=== PATIENT | male | born 1955 | race Caucasian/White ===

== ENCOUNTER → 2019-10-21 | Outpatient (CLI) | payer BC ==
--- NOTE | 2019-10-22 07:50 | XR ---
EXAM TYPE: LUMBAR SPINE X RAY SERIES COMPARISON: NONE HISTORY: Pain TECHNIQUE: 3 views are submitted. FINDINGS: Alignment is anatomic. The pedicles are intact. The transverse processes are intact. Diffuse osteop enia. Hypertrophic and degenerative changes of the spine with severe facet arthropathy L4-5 and L5-S1 . No anterolisthesis. IMPRESSION: 1. Diffuse osteopenia with multilevel mild degenerative disc disease. Severe facet arthropathy L4-5 a nd L5-S1.
== END | disposition home or self-care (01) ==
LOC: RAD 16:58
PROVIDERS: ATTEND Family Medicine
DX: M51.36 Other intervertebral disc degeneration, lumbar region (principal); M85.88 Other specified disorders of bone density and structure, other site; M47.896 Other spondylosis, lumbar region
CPT/HCPCS: 72100

== ENCOUNTER → 2020-01-13 | Outpatient (CLI) | payer BC ==
[2020-01-13 17:04] LABS: Basophils # (A) 0.1 k/uL (0-0.2); Basophils % (A) 1 %; Eosinophils # (A) 0.2 k/uL (0-0.7); Eosinophils % (A) 2 %; HCT 48.7 % (39.0-53.0); HGB 15.8 gm/dL (13.0-17.5); Lymphocytes # (A) 2.2 k/uL (1.0-4.8); Lymphocytes % (A) 21 %; MCH 29.4 pg (25.0-35.0); MCHC 32.5 g/dL (31.0-37.0); MCV 90.3 fL (80.0-100.0); Monocytes # (A) 0.9 k/uL (0-1.0); Monocytes % (A) 8 %; Neutrophils # (A) 7.1 k/uL (1.3-7.7); Neutrophils % (A) 67 %; Platelet Count 340 k/uL (150-450); RBC 5.39 m/uL (4.30-5.90); WBC 10.7 k/uL (3.8-10.6)
[2020-01-14 00:09] LABS: Erythrocyte Sedimentation Rate 8 mm/Hr (0-20)
[2020-01-14 03:06] LABS: Gliadin AB IgA, Deaminated NEGATIVE (NEGATIVE); Gliadin AB IgA, Unit 0.4 U/mL; Gliadin AB IgG, Deaminated NEGATIVE (NEGATIVE)
== END | disposition home or self-care (01) ==
LOC: LABWHC1 15:57
PROVIDERS: ATTEND Internal Medicine Gastroenterology
DX: K52.9 Noninfective gastroenteritis and colitis, unspecified (principal)
CPT/HCPCS: 36415; 83516; 85025; 85652; 86140

== ENCOUNTER → 2021-11-29 | Outpatient (CLI) | payer MEDICARE, BC ==
[2021-11-29 14:33] LABS: Basophils # (A) 0.06 X 10*3/uL (0.00-0.10); Basophils % (A) 0.9 %; Eosinophils # (A) 0.14 X 10*3/uL (0.04-0.35); HCT 44.9 % (39.6-50.0); Immature Grans, Automated 0.6 %; Lymphocytes # (A) 1.32 X 10*3/uL (0.90-5.00); MCHC 33.4 g/dL (32.0-37.0); MCV 86.8 fL (80.0-97.0); Monocytes % (A) 11.5 %; NRBC Per 100 WBC 0 /100 WBCS (0.0-0.0); Platelet Count 263 X 10*3/uL (140-440); RBC 5.17 X 10*6/uL (4.40-5.60); RDW 12.9 % (11.5-14.5); WBC 6.96 X 10*3/uL (4.50-10.00)
[2021-11-29 14:35] LABS: African American GFR (CKD) 87.9 (60.0-200.0); Albumin 4.1 g/dL (3.8-4.9); Albumin/Globulin Ratio 1.56 (1.60-3.17); Anion Gap 9.4 mmol/L (10.00-18.00); BUN/Creat Ratio 11.17 Ratio (12.00-20.00); Blood Urea Nitrogen 11.5 mg/dL (9.0-27.0); Carbon Dioxide 23.7 mmol/L (20.0-27.5); Globulin 2.6 g/dL (1.6-3.3); Non-African American GFR(CKD) 75.9 (60.0-200.0); Potassium 4.2 mmol/L (3.5-5.5); Total Bilirubin 0.6 mg/dL (0.30-1.20); Total Protein 6.7 g/dL (6.2-8.2)
== END | disposition home or self-care (01) ==
LOC: LABWHC1 10:19
PROVIDERS: ATTEND Family Medicine
DX: Z01.812 Encounter for preprocedural laboratory examination (principal); E11.9 Type 2 diabetes mellitus without complications; I10 Essential (primary) hypertension; E78.5 Hyperlipidemia, unspecified
CPT/HCPCS: 36415; 80053; 85025

== ENCOUNTER 2021-12-05 10:31 | Day surgery (SDC) | payer MEDICARE, BC ==
[2021-12-03 09:18] VITALS: BMI 43.0
--- NOTE | 2021-12-04 23:53 | HP ---
HISTORY AND PHYSICAL DATE OF SURGERY: 12/05/2021 HISTORY: Adrián Acosta is a 66-year-old patient who is having progressive right knee pain. We discussed options for treatment. He elected to proceed with right knee arthroscopy. Consent was obtained. Medical clearance was provided by Dr. Mitchell. PAST MEDICAL HISTORY: Hypertension, insulin-dependent diabetes, and hyperlipidemia. PAST SURGICAL HISTORY: Foot surgery, knee arthroscopy. MEDICATIONS: Atenolol, Lantus insulin, Prilosec, and simvastatin. ALLERGIES: None. SOCIAL HISTORY: Denies current tobacco use. PHYSICAL EVALUATION OF THE RIGHT KNEE: Range of motion is 0-130. He has mild effusion. Tenderness on the medial and lateral joint lines. Positive medial Elisa's. Positive lateral Elisa's. Ligaments stable. Hip rotation without pain. Distal neurovascular exam is intact. RADIOGRAPHS: Revealed osteoarthritic changes. MRI right knee revealed lateral meniscal tear and osteoarthritic changes. IMPRESSION: 1. Internal derangement of right knee lateral meniscal tear. 2. Right knee osteoarthritis. 3. Insulin-dependent diabetes. 4. Hypertension. 5. Hyperlipidemia. PLAN: Right knee arthroscopy with partial lateral meniscectomy and debridement. MMODL / IJN: [id number] /
[~2021-12-05 10:31] MED LIST: DEXAMETHASONE SOD PHOSPHATE 4 MG/ML 1 ML VIAL IV ONE; LACTATED RINGERS 1,000 ML IV SCH; LIDOCAINE 1% (10MG/ML) FOR IV START INTRADERMA PRN; MIDAZOLAM 2 MG/2 ML VIAL IV PRN; ONDANSETRON 4 MG/2 ML VIAL IVP ONE; ceFAZolin 3 GM in SODIUM CHLORIDE 0.9% 100 ML IVPB PRN
[2021-12-05 11:27] LABS: Glucose,Whole Blood 128 mg/dL (70-110)
[2021-12-05] MEDS ORDERED: SUCCINYLCHOLINE CHLORIDE 200 MG/10 ML VIAL IV ONE (11:44)
[2021-12-05] MEDS ORDERED: MIDAZOLAM 2 MG/2 ML VIAL ONE (11:44)
[2021-12-05] MEDS ORDERED: fentaNYL (PF) 50 MCG/ML 2 ML AMP ONE (11:44)
[2021-12-05] MEDS ORDERED: PROPOFOL 10 MG/ML 20 ML VIAL IV ONE (11:44)
[2021-12-05] MEDS ORDERED: LIDOCAINE 2% INJ 20 MG/ML (2 ML VIAL) ONE (11:44)
[2021-12-05] MEDS ORDERED: BUPIVACAINE (PF) 0.25% 30 ML VIAL INTRAARTIC ONE (12:11)
[2021-12-05 12:45] VITALS: RESP 16; TEMP 97
--- NOTE | 2021-12-05 12:47 | P.OP ---
Date of Procedure: 12/05/21 Preoperative Diagnosis: Internal derangement right knee Postoperative Diagnosis: 1. Tear medial and lateral meniscus right knee 2. Grade 2/3 chondromalacia medial femoral condyle right knee 3. Reactive synovitis medial, lateral and suprapatellar compartments right knee Procedure(s) Performed: 1. Arthroscopic partial medial and lateral meniscectomy right knee 2. Arthroscopic chondroplasty medial femoral condyle right knee 3. Arthroscopic partial synovectomy medial, lateral and suprapatellar compartments right knee Anesthesia: TICOA, local Surgeon: Moisés Bryant Estimated Blood Loss (ml): 7 Pathology: none sent Condition: stable Disposition: PACU Indications for Procedure: 66-year-old patient seen with progressive right knee pain. After treatment options were discussed, he elected to proceed with arthroscopy. Operative Findings: See description of procedure Description of Procedure: Patient was taken to the operative suite. Patient underwent a general anesthetic by the department of anesthesia. Patient was given preoperative antibiotics. The right lower extremity was placed in a well-padded arthroscopic leg whitehead. The right leg was prepped and draped in the normal sterile orthopedic fashion. A lateral parapatellar and suprapatellar incision was made. Trochars were inserted. Arthroscopy was initiated. Suprapatellar pouch revealed diffuse thick reactive synovitis. The patellofemoral joint appeared to articulate congruently. There was grade 1/2 chondromalacia of the patella with no osteochondral tears present. The scope was guided into the medial gutter. No loose bodies or plica were identified. The scope was then guided into the medial compartment. A medial parapatellar incision was made. Trocar inserted followed by probe. There was a radial tear involving the posterior horn and midbody of the medial meniscus. There was evidence of previous meniscectomy as well. There were grade 2/3 chondromalacia changes of the femoral condyle and tibial plateau with some osteochondral flap tears involving the femoral condyle. There was some thick reactive synovitis anteriorly. I performed a partial medial meniscectomy getting down to stable meniscal tissue. I performed a cho ndroplasty of the medial femoral condyle getting down to stable osteochondral tissue. I performed a partial synovectomy decompressing the reactive synovitis. The residual meniscus was stable. The residual osteochondral surface was stable. There was good decompression of the synovitis. Scope and probe were then guided into the intercondylar notch. Cruciates were identified, probed and found to be stable. The scope and probe were then guided into lateral compartment. There was a radial tear anterior horn lateral meniscus. There were grade 1 chondromalacia changes of the lateral compartment with no osteochondral tears present. Her was some thick reactive synovitis anteriorly. I performed a partial lateral meniscectomy. I performed a partial synovectomy. The residual meniscus was stable. There was good decompression of synovitis. The scope was in guided back into the suprapatellar compartment. I introduced a motorized shaver into the suprapatellar compartment. I debrided some piecemeal fragments of meniscus I encountered. I performed a partial synovectomy. The shaver was now removed. There was good decompression of synovitis. I took one more look on the entire knee, no residual debris. Instruments were now removed from the joint. The joint was infiltrated with .25% Marcaine. Steri-Strips were applied to the portal sites. Sterile dressings were applied. The patient was placed into a WOOD hose. No tourniquet was utilized. The patient was awakened, transferred to a bed and taken to recovery stable satisfactory condition.
[2021-12-05] MEDS: HYDROmorphone 0.5 MG/0.5 ML SYRINGE IVP PRN ×2 (12:55→13:05)
[2021-12-05] MEDS ORDERED: ONDANSETRON ODT 4 MG TAB PO ONE ×2 (14:41)
[2021-12-05 14:52] LABS: Glucose,Whole Blood 128 mg/dL (70-110)
[2021-12-05 14:54] VITALS: BP 150/76; PULSE 72
== END 2021-12-05 15:18 | disposition home or self-care (01) ==
LOC: OR 10:31
PROVIDERS: ATTEND Orthopaedic Surgery
DX: S83.281A Other tear of lateral meniscus, current injury, right knee, initial encounter (principal); S83.241A Other tear of medial meniscus, current injury, right knee, initial encounter; M17.11 Unilateral primary osteoarthritis, right knee; M65.861 Other synovitis and tenosynovitis, right lower leg; M94.261 Chondromalacia, right knee; X58.XXXA Exposure to other specified factors, initial encounter; I10 Essential (primary) hypertension; E11.9 Type 2 diabetes mellitus without complications; E78.5 Hyperlipidemia, unspecified; G47.33 Obstructive sleep apnea (adult) (pediatric); Z87.891 Personal history of nicotine dependence; Z79.899 Other long term (current) drug therapy; Z79.4 Long term (current) use of insulin; Z79.82 Long term (current) use of aspirin; Z98.890 Other specified postprocedural states
CPT/HCPCS: 29880; J2250; J0330; J1100; J0690; J2405; J3010; J2704; J1170; J2001

== ENCOUNTER → 2022-02-14 | Outpatient (CLI) | payer MEDICARE, BC ==
--- NOTE | 2022-02-14 17:07 | P.PN ---
Subjective DATE: 02/14/2022 FOLLOW UP VISIT. Patient with obstructive sleep apnea hypopnea syndrome return to sleep center for follow-up visit. This is first visit after patient received new CPAP unit. Information from previous visit have been reviewed. Patient is using PAP equipment every night for the whole night, getting PAP supplies in time. The patient does not have significant problems with the mask, PAP unit and humidification. [place] sleepiness scale is 2, which is perfect. I checked information from PAP unit. PAP unit pressure 6-10, average 9.5 cm H2O. Usage is 70 % for more then 4 hours, average 8 hours per night. Leak is 4.1 l/m, which is in acceptable range. Apnea Hypopnea Index is 1.5, which is normal. MEDICATIONS:1. Atenolol 25 mg once a day 2. Simvastatin 40 mg once a day 3. Insulin 4. Famotidine 40 mg once a day During physical exam: GENERAL: A pleasant patient without any distress. VITAL SIGNS: BP 142/82, HR 83, RR 16 , weight 326.4, temperature 97, oxygen saturation at room air 96 % . HEENT: PERRLA, EOMI.low position of soft palate, Mallapati 4 . NECK: Supple. No JVD. LUNGS: Clear to percussion and to auscultation. Good air exchange. No wheezing or rhonchi. HEART: S1, S2 regular. ABDOMEN: Soft and nontender. Obese EXTREMITIES: No clubbing or cyanosis. CHOCOLATIER: Awake, alert, and oriented x3. No focal deficit. Impressions: 1. Obstructive sleep apnea-hypopnea syndrome. Patient demonstrated good compliance with treatment, benefiting from treatment. 2. Obesity. 3. Hypertension. 4. Diabetes mellitus. 5. Acid reflux. 6. Hyperlipidemia. 7. History of asbestosis. 8. Status post arthroscopic knee surgery. 9. Status post hemorrhoidectomy. 10. Status post bilateral cataract surgery. 11.[]. 12.[]. Plan: 1. Continue using PAP equipment every night for the whole night. 2. To change air filter at least 1-2 times per month. 3. PAP unit should stay lower then position of the head. 4. Advised patient to remove all remaining water from humidifier canister daily and make it dry after each usage. Refill canister with fresh distilled water before each usage. 5. Sleep hygiene with regular time in bed for at least 8 hours. 6. Precautions related to driving. No driving if feel any sleepiness. 7. I will maintain prescription for PAP supplies including mask, tube, filters. 8. Follow up visit in 6 months or earlier if patient has any problems. 9. Watching and losing weight. Thank you very much for allowing me to participate in the management of your patient. Huber Rendon MD, PhD, FAASM. Diplomat of [place] [employer], Sleep Medicine Board by [employer] Title Vehicle Service Attendant of [facility]
== END ==
LOC: SLEEP 14:16
PROVIDERS: ATTEND Internal Medicine
DX: G47.33 Obstructive sleep apnea (adult) (pediatric) (principal); E66.9 Obesity, unspecified; I10 Essential (primary) hypertension; E11.9 Type 2 diabetes mellitus without complications; K21.9 Gastro-esophageal reflux disease without esophagitis; E78.5 Hyperlipidemia, unspecified; Z98.890 Other specified postprocedural states; Z77.090 Contact with and (suspected) exposure to asbestos; Z79.899 Other long term (current) drug therapy; Z79.4 Long term (current) use of insulin; Z87.891 Personal history of nicotine dependence
CPT/HCPCS: 99212

== ENCOUNTER → 2022-08-22 | Outpatient (CLI) | payer MEDICARE, BC ==
--- NOTE | 2022-08-22 15:50 | P.PN ---
Subjective DATE: 08/22/2022 FOLLOW UP VISIT. Patient with obstructive sleep apnea hypopnea syndrome return to sleep center for follow-up visit. Information from previous visit have been reviewed. Patient is using PAP equipment every night for the whole night, getting PAP supplies in time. The patient does not have significant problems with the mask, PAP unit and humidification. [place] sleepiness scale is 2, which is normal. I checked information from PAP unit. PAP unit pressure 6-10, average 9.5 cm H2O. Usage is 100 % for more then 4 hours, average 7.25 hours per night. Leak is 3.6 l/m, which is in minimal range. Apnea Hypopnea Index is 1.5, which is normal. MEDICATIONS:1. Atenolol 25 mg once a day 2. Lantus and Humalog 3. Lipitor 4. Famotidine 40 mg once a day 5. [] 6. [] 7. [] 8. [] During physical exam: GENERAL: A pleasant patient without any distress. VITAL SIGNS: BP 150/85, HR 71, RR 16 , weight 332.2, temperature 98.2, oxygen saturation at room air 97 % . HEENT: PERRLA, EOMI.low position of soft palate, Mallapati 4 . NECK: Supple. No JVD. LUNGS: Clear to percussion and to auscultation. Good air exchange. No wheezing or rhonchi. HEART: S1, S2 regular. ABDOMEN: Soft and nontender. Obese EXTREMITIES: No clubbing or cyanosis. AUTOMATION AND CONTROLS INSTRUCTOR: Awake, alert, and oriented x3. No focal deficit. Impressions: 1. Obstructive sleep apnea-hypopnea syndrome. Patient demonstrated great compliance with treatment, benefiting from treatment. 2. Obesity, patient increased his weight on 6 pounds since previous visit. 3. Diabetes mellitus. 4. Hypertension. 5. Acid reflux. 6. History of asbestosis. 7. Status post arthroscopic knee surgery. 8. Status post bilateral cataract surgery. 9. Status post hemorrhoidectomy. Plan: 1. Continue using PAP equipment every night for the whole night. 2. To change air filter at least 1-2 times per month. 3. PAP unit should stay lower then position of the head. 4. Advised patient to remove all remaining water from humidifier canister daily and make it dry after each usage. Refill canister with fresh distilled water before each usage. 5. Sleep hygiene with regular time in bed for at least 8 hours. 6. Precautions related to driving. No driving if feel any sleepiness. 7. I will maintain prescription for PAP supplies including mask, tube, filters. 8. Watching and losing weight. 9. Follow up visit in 6 months or earlier if patient has any problems. Thank you very much for allowing me to participate in the management of your patient. Huber Rendon MD, PhD, FAASM. Diplomat of [place] [employer], Sleep Medicine Board by [place] [employer] Planning Aide of [facility] [place]
== END ==
LOC: 3 N SLEEP 15:25
PROVIDERS: ATTEND Internal Medicine
DX: G47.33 Obstructive sleep apnea (adult) (pediatric) (principal); Z99.89 Dependence on other enabling machines and devices; E11.9 Type 2 diabetes mellitus without complications; I10 Essential (primary) hypertension; K21.9 Gastro-esophageal reflux disease without esophagitis; Z98.890 Other specified postprocedural states; Z96.659 Presence of unspecified artificial knee joint; Z77.090 Contact with and (suspected) exposure to asbestos; Z79.84 Long term (current) use of oral hypoglycemic drugs; Z79.82 Long term (current) use of aspirin; Z87.891 Personal history of nicotine dependence

== ENCOUNTER 2023-12-19 22:05 | Inpatient (IN) | payer MEDICARE, BC ==
--- NOTE | 2023-12-19 22:45 | ED ---
Extremity Problem HPI - General Chief complaint: Extremity Problem,Nontraumatic Stated complaint: L Leg Swollen Time Seen by Provider: 12/19/23 22:35 Source: patient, RN notes reviewed, old records reviewed Mode of arrival: ambulatory Limitations: no limitations - History of Present Illness Initial comments: This 68-year-old male to the ER for evaluation of severe left lower extremity pain and swelling significant swelling of the left leg redness warmth with fevers. No history of prior blood clots, no history of significant cellulitis in the past. No other complaints no travel or sick contacts no injuries or lacerations noted MD Complaint: extremity pain, extremity swelling -: days(s) Location: left, lower extremity -: Yes arthralgia Radiation: proximal, distal Severity scale (1-10): 10 Quality: constant Consistency: constant Improves with: nothing Worsens with: nothing Associated Symptoms: denies other symptoms - Related Data Home Medications Medication Instructions Recorded Confirmed Aspirin 81 mg PO DAILY 04/24/14 12/05/21 Insulin Glargine [Lantus] 40 mg SQ BID 04/24/14 12/05/21 Simvastatin [Zocor] 40 mg PO DAILY 04/24/14 12/05/21 atenoloL [Tenormin] 25 mg PO DAILY 04/24/14 12/05/21 Insulin Lispro [humaLOG] 40 units SQ BID 05/03/14 12/05/21 Empagliflozin [Jardiance] 25 mg PO DAILY 12/03/21 12/05/21 Hyoscyamine Sulfate [Levbid] 0.375 mg PO TID 12/03/21 12/05/21 Magnesium Oxide [Magnesium] 500 mg PO DAILY 12/03/21 12/05/21 Previous Rx's Medication Instructions Recorded HYDROcodone/APAP 5-325MG [[place] 1 tab PO Q6HR PRN #12 tab 12/05/21 5-325] Allergies Allergy/AdvReac Type Severity Reaction Status Date / Time No Known Allergies Allergy Verified 12/19/23 22:13 Review of Systems ROS Statement: Those systems with pertinent positive or pertinent negative responses have been documented in the HPI. ROS Other: All systems not noted in ROS Statement are negative. Past Medical History Past Medical History: Diabetes Mellitus Additional Past Medical History / Comment(s): hard of hearing, exposure to asbestosis, wears CPAP at night History of Any Multi-Drug Resistant Organisms: None Reported Past Surgical History: Orthopedic Surgery Additional Past Surgical History / Comment(s): hemmorrhoid removed, heel spur repaired, arthroscope [place] knee, colonoscopy 2 years ago. Additional Past Anesthesia/Blood Transfusion Reaction / Comment(s): no previous blood transfusions Past Psychological History: No Psychological Hx Reported Smoking Status: Former smoker Past Alcohol Use History: Occasional Past Drug Use History: None Reported - Past Family History Father Family Medical History: Cancer, Myocardial Infarction ([place]) Additional Family Medical History / Comment(s): aortic anerysum, colon/ skin CA Mother Family Medical History: Diabetes Mellitus Brother(s) Family Medical History: No Reported History Sister(s) Family Medical History: No Reported History Son(s) Family Medical History: No Reported History Daughter(s) Family Medical History: No Reported History General Exam Limitations: no limitations General appearance: alert, in no apparent distress Head exam: Present: atraumatic, normocephalic, normal inspection Eye exam: Present: normal appearance, PERRL, EOMI. Absent: scleral icterus, conjunctival injection, periorbital swelling ENT exam: Present: normal exam, mucous membranes moist Neck exam: Present: normal inspection. Absent: tenderness, meningismus, lymphadenopathy Respiratory exam: Present: normal lung sounds bilaterally. Absent: respiratory distress, wheezes, rales, rhonchi, stridor Cardiovascular Exam: Present: regular rate, normal rhythm, normal heart sounds. Absent: systolic murmur, diastolic murmur, rubs, gallop, clicks GI/Abdominal exam: Present: soft, normal bowel sounds. Absent: distended, tenderness, guarding, rebound, rigid Extremities exam: Present: normal inspection, full ROM, normal capillary refill. Absent: tenderness, pedal edema, joint swelling, calf tenderness Back exam: Present: normal inspection Neurological exam: Present: alert, oriented X3, CN II-XII intact Psychiatric exam: Present: normal affect, normal mood Skin exam: Present: warm, dry, intact, normal color. Absent: rash Course Vital Signs 12/19/23 22:09 Temperature 99.7 F H Pulse Rate 106 H Respiratory 18 Rate Blood Pressure 125/68 O2 Sat by Pulse 97 Oximetry - Reevaluation(s) Reevaluation #1: 12/19/23 23:02 Medical records reviewed Reevaluation #2: 12/19/23 23:02 Patient symptoms unchanged Reevaluation #3: 12/19/23 23:02 Informed of results and questions answered Reevaluation #4: Was pt. sent in by a medical professional or institution (, [facility], [facility], urgent care, hospital, or custodial...) When possible be specific @ -no Did you speak to anyone other than the patient for history (EMS, parent, family, police, friend...)? What history was obtained from this source @ -no Did you review nursing and triage notes (agree or disagree)? Why? @ -agree Are old charts reviewed (outside hosp., previous admission, EMS record, old EKG, old radiological studies, urgent care reports/EKG's, custodial records)? Report findings @ -yes Differential Diagnosis (chest pain, altered mental status, abdominal pain women, abdominal pain men, vaginal bleeding, weakness, fever, dyspnea, syncope, headache, dizziness, GI bleed, back pain, seizure, CVA, palpatations, mental health, musculoskeletal)? @ -prior EKG interpreted by me (3pts min.). @ -yes X-rays interpreted by me (1pt min.). @ -yes negative for acute disease CT interpreted by me (1pt min.). @ -no U/S interpreted by me (1pt. min.). @ -no What testing was considered but not performed or refused? (CT, X-rays, U/S, labs)? Why? @ -none What meds were considered but not given or refused? Why? @ -none Did you discuss the management of the patient with other professionals (professionals i.e. , [facility], [facility], lab, RT, psych nurse, social sciences department chair, patent lawyer, teacher, sailing officer, community case manager)? Give summary @ -no Was smoking cessation discussed for >3mins.? @ -no Was critical care preformed (if so, how long)? @ -no Were there social determinants of health that impacted care today? How? (Homelessness, low income, unemployed, alcoholism, drug addiction, transportation, low edu. Level, literacy, decrease access to med. care, fci, rehab)? @ -none Was there de-escalation of care discussed even if they declined (Discuss DNR or withdrawal of care, Hospice)? DNR status @ -no What co-morbidities impacted this encounter? (DM, HTN, Smoking, COPD, CAD, Cancer, CVA, ARF, Chemo, Hep., AIDS, mental health diagnosis, sleep apnea, morbid obesity)? @ -none Was patient admitted / discharged? Hospital course, mention meds given and route, prescriptions, significant lab abnormalities, going to OR and other pertinent info. @ - Undiagnosed new problem with uncertain prognosis? @ -no Drug Therapy requiring intensive monitoring for toxicity (Heparin, Nitro, Insulin, Cardizem)? @ -no Were any procedures done? @ -no Diagnosis/symptom? @ - Acute, or Chronic, or Acute on Chronic? @ -Acute Uncomplicated (without systemic symptoms) or Complicated (systemic symptoms)? @ -Complicated Side effects of treatment? @ -no Exacerbation, Progression, or Severe Exacerbation? @ -exacerbation Poses a threat to life or bodily function? How? (Chest pain, [place], [place], pneumonia, PE, COPD, DKA, ARF, appy, cholecystitis, CVA, Diverticulitis, Homicidal, Suicidal, threat to staff... and all critical care pts) @ -yes Reevaluation #5: Differential Fever: Pneumonia, viral URI, endocarditis, myocarditis, pericarditis, otitis, sinusitis, peritonsillar Abscess, retropharyngeal Abscess, epiglottitis, p eritonitis, appendicitis, Shayna cystitis, diverticulitis, hepatitis, colitis, UTI, PID, TOA, pyelonephritis, prostatitis, epididymitis, meningitis, encephalitis, pulmonary embolism, CVA, thyroid storm, pancreatitis, adrenal crisis, cavernous sinus thrombosis, this is not meant to be an all-inclusive list. - Consultations Consultation #1: Dr. Mitchell who agrees to admit this patient Medical Decision Making - Medical Decision Making 68 to the ER for evaluation patient presents today for evaluation regards to lower extremity pain swelling and redness, patient will be for IV antibiotics and significant cellulitis of the left leg - EKG Data -: EKG Interpreted by Me (EKG is sinus tach already 106 TX 210 QRS 122 QTc 386) - Radiology Data Radiology results: report reviewed (On x-ray of left lower extremity), image reviewed Disposition Clinical Impression: Diabetes, Acute renal failure, Left leg cellulitis Disposition: HOME SELF-CARE Condition: Good Is patient prescribed a controlled substance at d/c from ED?: No Referrals: Al Mitchell MD [Primary Care Provider] - 1-2 days Time of Disposition: 00:05
[2023-12-19] MEDS ORDERED: VANCOMYCIN IV PER PHARMACY 1 EACH MISC MISCELLANE PRN (23:00)
[2023-12-20] MEDS: SODIUM CHLORIDE 0.9% 1,000 ML IV STA (00:12)
[2023-12-20] MEDS ORDERED: NALOXONE 0.4 MG/ML 1 ML VIAL IV PRN (00:13)
[2023-12-20] MEDS ORDERED: ONDANSETRON 4 MG/2 ML VIAL IVP PRN (00:13)
[2023-12-20] MEDS ORDERED: MORPHINE SULFATE 4 MG/ML SYRINGE IV PRN (00:13)
[2023-12-20 00:17] LABS: Basophils # (A) 0.1 k/uL (0-0.2); Basophils % (A) 0 %; Eosinophils % (A) 0 %; HCT 43.9 % (39.0-53.0); HGB 14.2 gm/dL (13.0-17.5); Lymphocytes % (A) 6 %; MCHC 32.3 g/dL (31.0-37.0); MCV 89.6 fL (80.0-100.0); Mean Platelet Volume 7.4; Monocytes # (A) 0.8 k/uL (0-1.0); Monocytes % (A) 4 %; Neutrophils # (A) 16.9 k/uL (1.3-7.7); Neutrophils % (A) 89 %; Platelet Count 221 k/uL (150-450); RDW 13.5 % (11.5-15.5); WBC 19.1 k/uL (3.8-10.6)
[2023-12-20] MEDS: ACETAMINOPHEN TAB 500 MG TAB PO STA (00:21)
[2023-12-20] MEDS: KETOROLAC 15 MG/ML 1 ML VIAL IVP STA (00:21)
[2023-12-20] MEDS: IBUPROFEN 800 MG TAB PO STA (00:22)
[2023-12-20 00:33] LABS: ALT 21 U/L (4-49); AST 28 U/L (17-59); African American GFR (CKD) 59 (>60 ml/min/1.73 sqM); Albumin 3.8 g/dL (3.5-5.0); Alkaline Phosphatase 86 U/L (38-126); Anion Gap 11 mmol/L; Blood Urea Nitrogen 20 mg/dL (9-20); Calcium 9.1 mg/dL (8.4-10.2); Carbon Dioxide 22 mmol/L (22-30); Chloride 100 mmol/L (98-107); Glucose 173 mg/dL (74-99); Non-African American GFR(CKD) 51 (>60 ml/min/1.73 sqM); Phosphorus 2.9 mg/dL (2.5-4.5); Potassium 4.1 mmol/L (3.5-5.1); Sodium 133 mmol/L (137-145); Total Bilirubin 1.6 mg/dL (0.2-1.3); Total Protein 6.3 g/dL (6.3-8.2)
[2023-12-20 00:36] LABS: Partial Thromboplastin Time 28.1 sec (22.0-30.0)
[2023-12-20 00:39] LABS: NT-Pro-B-Type Natriuretic Pept 1100 pg/mL
--- NOTE | 2023-12-20 00:52 | XR ---
EXAM: XR Left Tibia and Fibula, 2 Views CLINICAL HISTORY: XR Reason: pain TECHNIQUE: Frontal and lateral views of the left tibia and fibula. COMPARISON: No relevant prior studies available. FINDINGS: Bones/joints: The tibia and fibula appear intact and normally aligned. No acute fracture or dislocation is seen. The knee and ankle joints are normally aligned. Soft tissues: There is diffuse subcutaneous edema throughout the left lower leg. No subcutaneous emphysema is identified. No radiopaque foreign body. IMPRESSION: There is diffuse subcutaneous edema throughout the left lower leg. No subcutaneous emphysema is identified. This is nonspecific. Consider cellulitis versus generalized edema.
--- NOTE | 2023-12-20 00:55 | US ---
EXAM: US Duplex Left Lower Extremity Veins CLINICAL HISTORY: US Reason: 68 years old with history of pain; pain and redness in left calf with on and off fevers. No hx of DVT. Not on blood thinners TECHNIQUE: Real-time duplex ultrasound scan of the left lower extremity veins integrating B-mode two-dimensional vascular structure, Doppler spectral analysis, color flow Doppler imaging and compression. COMPARISON: No relevant prior studies available. FINDINGS: Deep veins: Unremarkable. No DVT in the visualized common femoral, femoral, proximal deep femoral or popliteal veins. The veins demonstrate normal color flow, are normally compressible, with normal phasic flow and/or augmentation response. Superficial veins: Unremarkable. No thrombus in the visualized great saphenous vein. Soft tissues: There is a wound VAC in the left groin. No popliteal cyst. IMPRESSION: No evidence of DVT in the left lower extremity.
[2023-12-20] MEDS ORDERED: DEXTROSE 50% SYRINGE 50 ML IVP PRN ×2 (01:09)
[2023-12-20] MEDS: VANCOMYCIN 2,000 MG in SODIUM CHLORIDE 0.9% 500 ML 500 ML IVPB ONE (01:31)
[2023-12-20] MEDS: SODIUM CHLORIDE 0.9% 1,000 ML IV SCH (01:31)
[2023-12-20 02:10] LABS: Glucose,Whole Blood 198 mg/dL (70-110)
[2023-12-20 06:56] LABS: Glucose,Whole Blood 198 mg/dL (70-110)
[2023-12-20] MEDS: INSULIN ASPART (NovoLOG) 100 UNIT/ML VIAL SQ SCH (06:59)
[2023-12-20] MEDS: PANTOPRAZOLE 40 MG/10 ML VIAL IV SCH (09:40)
--- NOTE | 2023-12-20 11:09 | P.HPIM ---
History of Present Illness H&P Date: 12/20/23 Chief Complaint: cellulitis left lower extreme Mr. Acosta is a 68-year-old male well-known to my practice presents today with a cellulitis to the left lower extreme secondary to small abrasion he recently underwent removal of a mass to the left thigh for which she has a wound VAC for closure, Dr. 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 Review of Systems Constitutional: Reports as per HPI, Reports fever, Reports malaise Ears, nose, mouth and throat: Reports as per HPI Cardiovascular: Reports high blood pressure Respiratory: Reports as per HPI Gastrointestinal: Reports as per HPI Genitourinary: Reports urinary frequency (probably secondary to IV fluids) Musculoskeletal: Reports as per HPI Integumentary: Reports wounds (wound VAC left thigh) Neurological: Reports aphasia Psychiatric: Reports as per HPI Endocrine: Reports polydipsia (known type 2 diabetes), Reports polyphagia, Reports polyuria Past Medical History Past Medical History: Diabetes Mellitus Additional Past Medical History / Comment(s): hard of hearing, exposure to asbestosis, wears CPAP at night, fatty tumor on the left upper thigh with removal 1 month ago History of Any Multi-Drug Resistant Organisms: None Reported Past Surgical History: Orthopedic Surgery Additional Past Surgical History / Comment(s): hemmorrhoid removed, heel spur repaired, arthroscope rosanna knee, colonoscopy 2 years ago. Additional Past Anesthesia/Blood Transfusion Reaction / Comment(s): no previous blood transfusions Past Psychological History: No Psychological Hx Reported Additional Psychological History / Comment(s): Works at a local [employer]. Stopped tobacco smoking in 1984. No history of experience. No history of any significant travels. No animal exposures in the home. No history of significant alcohol or recreational drug use. Smoking Status: Former smoker Past Alcohol Use History: Occasional Additional Past Alcohol Use History / Comment(s): drinks 1 drink only during holidays Past Drug Use History: None Reported - Past Family History Father Family Medical History: Cancer, Myocardial Infarction ([place]) Additional Family Medical History / Comment(s): aortic anerysum, colon/ skin CA Mother Family Medical History: Diabetes Mellitus Brother(s) Family Medical History: No Reported History Sister(s) Family Medical History: No Reported History Son(s) Family Medical History: No Reported History Daughter(s) Family Medical History: No Reported History Medications and Allergies Home Medications Medication Instructions Recorded Confirmed Type Insulin Glargine [Lantus] 40 mg SQ BID 04/24/14 12/20/23 History RX: Aspirin 81 mg PO DAILY 04/24/14 12/20/23 History Insulin Lispro [humaLOG] 40 units SQ BID 05/03/14 12/20/23 History Empagliflozin [Jardiance] 25 mg PO DAILY 12/03/21 12/20/23 History Hyoscyamine Sulfate [Levbid] 0.375 mg PO TID 12/03/21 12/20/23 History Magnesium Oxide [Magnesium] 500 mg PO DAILY 12/03/21 12/20/23 History Valsartan/Hydrochlorothiazide 1 each PO DAILY 12/20/23 12/20/23 History [Valsartan-Hctz 160-12.5 mg Tab] Allergies Allergy/AdvReac Type Severity Reaction Status Date / Time No Known Allergies Allergy Verified 12/19/23 22:13 Physical Exam Osteopathic Statement: *. No significant issues noted on an osteopathic struc tural exam other than those noted in the History and Physical/Consult. Vitals: Vital Signs Temp Pulse Pulse Resp BP BP Pulse Ox 12/20/23 07:03 99.4 F 109 H 18 109/64 94 L 12/20/23 03:39 20 12/20/23 02:07 98.9 F 120 H 17 131/75 96 12/20/23 01:39 112 H 16 94/56 96 12/19/23 22:09 99.7 F H 106 H 18 125/68 97 Intake and Output 12/19/23 12/20/23 12/20/23 22:59 06:59 14:59 Intake Total 1280 Balance 1280 Intake: Intake, IV Titration 800 Amount Sodium Chloride 0.9% 1, 300 000 ml @ 75 mls/hr IV . [id number] [facility] Rx#:[id number] Vancomycin 2,000 mg In 500 Sodium Chloride 0.9% 500 ml 500 ml @ 167 mls/hr IVPB Q16H [facility] Rx#: [id number] Oral 480 Other: Voiding Method Toilet # Voids 2 1 Weight 136.078 kg 136.078 kg General: [Patient awake, alert and oriented times 3. Patient in no acute distress. HEENT: [PERRL. EOMI. No pharyngeal erythema or exudate.] Neck: [No adenopathy.] Cardiac: [Heart regular in rate and rhythm. No S3. No S4. No clicks, rubs. No murmur.] Lungs: [Clear to auscultation bilaterally.] Abdomen: [No mass. No organomegaly. Bowel sounds presnt and normoactive in all 4 quadrants.] Extremes: cellulitis to the knee on the left side, wound VAC small abrasion anterior tibial region and mid lower extreme : normal male genitalia Musculoskeletal: [No joint erythema, edema or tenderness.] Skin: [No rash.] Neurologic: [No lateralizing deficits. CN II - XII grossly intact.] Lymphatic: [No adenopathy.] Results CBC & Chem 7: 12/19/23 23:01 12/19/23 23:01 Labs: Abnormal Lab Results - Last 24 Hours (Table) 12/19/23 12/19/23 12/19/23 Range/Units 23:01 23:01 23:01 WBC 19.1 H (3.8-10.6) k/uL Neutrophils # 16.9 H (1.3-7.7) k/uL D-Dimer 0.72 H (<0.60) mg/L FEU Sodium 133 L (137-145) mmol/L Creatinine 1.42 H (0.66-1.25) mg/dL Glucose 173 H (74-99) mg/dL POC Glucose (mg/dL) (70-110) mg/dL Total Bilirubin 1.6 H (0.2-1.3) mg/dL 12/20/23 12/20/23 Range/Units 02:09 06:55 WBC (3.8-10.6) k/uL Neutrophils # (1.3-7.7) k/uL D-Dimer (<0.60) mg/L FEU Sodium (137-145) mmol/L Creatinine (0.66-1.25) mg/dL Glucose (74-99) mg/dL POC Glucose (mg/dL) 198 H 198 H (70-110) mg/dL Total Bilirubin (0.2-1.3) mg/dL Thrombosis Risk Factor Assmnt - Choose All That Apply Any of the Below Risk Factors Present?: Yes Each Factor Represents 1 point: Obesity (BMI >25), Swollen legs (current) Other Risk Factors: Yes Each Risk Factor Represents 2 Points: Age 61-74 years Thrombosis Risk Factor Assessment Total Risk Factor Score: 4 Thrombosis Risk Factor Assessment Level: Moderate Risk Assessment and Plan (1) Open wound of left thigh Narrative/Plan: postop removal of tumor left thigh wound VAC placed Current Visit: Yes Status: Acute Code(s): S71.102A - UNSPECIFIED OPEN WOUND, LEFT THIGH, INITIAL ENCOUNTER SNOMED Code(s): 33496285697638722 (2) Diabetes Current Visit: Yes Status: Acute Code(s): E11.9 - TYPE 2 DIABETES MELLITUS WITHOUT COMPLICATIONS SNOMED Code(s): 43485997 (3) Left leg cellulitis Current Visit: Yes Status: Acute Code(s): L03.116 - CELLULITIS OF LEFT LOWER LIMB SNOMED Code(s): 69521756093927919 (4) Diabetic ketoacidosis Current Visit: No Status: Acute Code(s): E13.10 - OTH DIABETES MELLITUS WITH KETOACIDOSIS WITHOUT COMA SNOMED Code(s): 851829025 (5) IDDM (insulin dependent diabetes mellitus) Current Visit: No Status: Chronic Code(s): E11.9 - TYPE 2 DIABETES MELLITUS WITHOUT COMPLICATIONS SNOMED Code(s): 91927173 Plan: IV antibiotics empirically vancomycin waiting on wound cultures Consult general surgery Dr. Kenny Anglin general surgery Consult infectious disease Sayed Consult wound nurse for dressing changes and wound care We'll repeat labs Time with Patient: Greater than 30
[2023-12-20 11:36] LABS: Glucose,Whole Blood 214 mg/dL (70-110)
[2023-12-20] MEDS: ceFAZolin 3 GM in SODIUM CHLORIDE 0.9% 100 ML IVPB SCH (15:34)
[2023-12-20] MEDS: HYOSCYAMINE SULFATE 0.375 MG TAB.ER.12H PO SCH (15:37)
--- NOTE | 2023-12-20 15:56 | P.GSCN ---
History of Present Illness Consult date: 12/20/23 History of present illness: Wound vac taken down for 5 x 3 x 3 cm wound along left groin upon visual inspection. Cultures obtained with moderate to severe cellulitis of the upper thigh 20 cx 20cm and entire lower leg. Antibiotic management pending cultures. Wet to dry with 2x2 in wound. Past Medical History Past Medical History: Diabetes Mellitus Additional Past Medical History / Comment(s): hard of hearing, exposure to asbestosis, wears CPAP at night, fatty tumor on the left upper thigh with removal 1 month ago History of Any Multi-Drug Resistant Organisms: None Reported Past Surgical History: Orthopedic Surgery Additional Past Surgical History / Comment(s): hemmorrhoid removed, heel spur repaired, arthroscope rosanna knee, colonoscopy 2 years ago. Additional Past Anesthesia/Blood Transfusion Reaction / Comm: no previous blood transfusions Past Psychological History: No Psychological Hx Reported Additional Psychological History / Comment(s): Works at a local [employer]. Stopped tobacco smoking in 1984. No history of experience. No history of any significant travels. No animal exposures in the home. No history of significant alcohol or recreational drug use. Smoking Status: Former smoker Past Alcohol Use History: Occasional Additional Past Alcohol Use History / Comment(s): drinks 1 drink only during holidays Past Drug Use History: None Reported - Past Family History Father Family Medical History: Cancer, Myocardial Infarction ([place]) Additional Family Medical History / Comment(s): aortic anerysum, colon/ skin CA Mother Family Medical History: Diabetes Mellitus Brother(s) Family Medical History: No Reported History Sister(s) Family Medical History: No Reported History Son(s) Family Medical History: No Reported History Daughter(s) Family Medical History: No Reported History Medications and Allergies Home Medications Medication Instructions Recorded Confirmed Type Aspirin 81 mg PO DAILY 04/24/14 12/20/23 History Insulin Glargine [Lantus] 40 mg SQ BID 04/24/14 12/20/23 History Insulin Lispro [humaLOG] 40 units SQ BID 05/03/14 12/20/23 History Empagliflozin [Jardiance] 25 mg PO DAILY 12/03/21 12/20/23 History Hyoscyamine Sulfate [Levbid] 0.375 mg PO TID 12/03/21 12/20/23 History Magnesium Oxide [Magnesium] 500 mg PO DAILY 12/03/21 12/20/23 History Pantoprazole [Protonix] 40 mg PO DAILY 12/20/23 12/20/23 History Simvastatin [Zocor] 40 mg PO DAILY 12/20/23 12/20/23 History Valsartan [Diovan] 160 mg PO DAILY 12/20/23 12/20/23 History Allergies Allergy/AdvReac Type Severity Reaction Status Date / Time No Known Allergies Allergy Verified 12/20/23 12:34 Surgical - Exam Vital Signs Temp Pulse Resp BP Pulse Ox 99.7 F H 106 H 18 125/68 97 12/19/23 22:09 12/19/23 22:09 12/19/23 22:09 12/19/23 22:09 12/19/23 22:09 Results - Labs 12/19/23 23:01 12/19/23 23:01 Abnormal Lab Results - Last 24 Hours (Table) 12/19/23 12/19/23 12/19/23 Range/Units 23:01 23:01 23:01 WBC 19.1 H (3.8-10.6) k/uL Neutrophils # 16.9 H (1.3-7.7) k/uL D-Dimer 0.72 H (<0.60) mg/L FEU Sodium 133 L (137-145) mmol/L Creatinine 1.42 H (0.66-1.25) mg/dL Glucose 173 H (74-99) mg/dL POC Glucose (mg/dL) (70-110) mg/dL Total Bilirubin 1.6 H (0.2-1.3) mg/dL 12/20/23 12/20/23 12/20/23 Range/Units 02:09 06:55 11:35 WBC (3.8-10.6) k/uL Neutrophils # (1.3-7.7) k/uL D-Dimer (<0.60) mg/L FEU Sodium (137-145) mmol/L Creatinine (0.66-1.25) mg/dL Glucose (74-99) mg/dL POC Glucose (mg/dL) 198 H 198 H 214 H (70-110) mg/dL Total Bilirubin (0.2-1.3) mg/dL Diabetes panel 12/19/23 Range/Units 23:01 Sodium 133 L (137-145) mmol/L Potassium 4.1 (3.5-5.1) mmol/L Chloride 100 (98-107) mmol/L Carbon Dioxide 22 (22-30) mmol/L BUN 20 (9-20) mg/dL Creatinine 1.42 H (0.66-1.25) mg/dL Glucose 173 H (74-99) mg/dL Calcium 9.1 (8.4-10.2) mg/dL AST 28 (17-59) U/L ALT 21 (4-49) U/L Alkaline Phosphatase 86 (38-126) U/L Total Protein 6.3 (6.3-8.2) g/dL Albumin 3.8 (3.5-5.0) g/dL Calcium panel 12/19/23 Range/Units 23:01 Calcium 9.1 (8.4-10.2) mg/dL Phosphorus 2.9 (2.5-4.5) mg/dL Albumin 3.8 (3.5-5.0) g/dL Pituitary panel 12/19/23 Range/Units 23:01 Sodium 133 L (137-145) mmol/L Potassium 4.1 (3.5-5.1) mmol/L Chloride 100 (98-107) mmol/L Carbon Dioxide 22 (22-30) mmol/L BUN 20 (9-20) mg/dL Creatinine 1.42 H (0.66-1.25) mg/dL Glucose 173 H (74-99) mg/dL Calcium 9.1 (8.4-10.2) mg/dL Adrenal panel 12/19/23 Range/Units 23:01 Sodium 133 L (137-145) mmol/L Potassium 4.1 (3.5-5.1) mmol/L Chloride 100 (98-107) mmol/L Carbon Dioxide 22 (22-30) mmol/L BUN 20 (9-20) mg/dL Creatinine 1.42 H (0.66-1.25) mg/dL Glucose 173 H (74-99) mg/dL Calcium 9.1 (8.4-10.2) mg/dL Total Bilirubin 1.6 H (0.2-1.3) mg/dL AST 28 (17-59) U/L ALT 21 (4-49) U/L Alkaline Phosphatase 86 (38-126) U/L Total Protein 6.3 (6.3-8.2) g/dL Albumin 3.8 (3.5-5.0) g/dL
[2023-12-20 16:52] LABS: Glucose,Whole Blood 224 mg/dL (70-110)
[2023-12-20] MEDS ORDERED: VANCOMYCIN 2,000 MG in SODIUM CHLORIDE 0.9% 500 ML 500 ML IVPB SCH (17:00)
[2023-12-20 19:59] LABS: Glucose,Whole Blood 302 mg/dL (70-110)
[2023-12-20] MEDS: INSULIN DETEMIR (LEVEMIR) 100 UNIT/ML SYR SQ SCH (22:06)
--- NOTE | 2023-12-20 23:18 | P.CONS ---
History of Present Illness - Reason for Consult Consult date: 12/20/23 Elevated WBC, cellulitis Requesting physician: Leon Ptarick Jr - Chief Complaint Left leg swelling and redness x days - History of Present Illness Patient is a 68-year-old male with a past medical history apparent for diabetes mellitus with a recent resection of tumor from the left upper thigh by Dr. lee and is currently being treated with wound VAC, patient presented to the hospital concerning for increasing swelling and redness to the left lower extremity that apparently has been getting worse over the last few days patient denies any history of any trauma or fall no wound to the left lower leg or any drainage patient complaining of fever with rigors and chills and did have a temperature of 99.7 on presentation to the hospital patient was also tachycardic has been complaining of increasing swelling redness to the left leg with some dull aching pain mild in intensity without radiation no open wound or any drainage patient on presentation to the hospital did have white count of 19.1 with a left shift creatinine is 1.42 liver enzymes are normal patient was started on vancomycin infectious disease was consulted for further management of antibiotic therapy patient did have a venous Doppler study that was negative for DVT x-rays of the tibia and fibula did not show any bony changes Review of Systems Positive point and negatives has been mentioned in the HPI, complete review of systems was performed and all other systems are negative Past Medical History Past Medical History: Diabetes Mellitus Additional Past Medical History / Comment(s): hard of hearing, exposure to asbestosis, wears CPAP at night, fatty tumor on the left upper thigh with re moval 1 month ago History of Any Multi-Drug Resistant Organisms: None Reported Past Surgical History: Orthopedic Surgery Additional Past Surgical History / Comment(s): hemmorrhoid removed, heel spur repaired, arthroscope rosanna knee, colonoscopy 2 years ago. Additional Past Anesthesia/Blood Transfusion Reaction / Comm: no previous blood transfusions Past Psychological History: No Psychological Hx Reported Additional Psychological History / Comment(s): Works at a local [employer]. Stopped tobacco smoking in 1984. No history of experience. No history of any significant travels. No animal exposures in the home. No history of significant alcohol or recreational drug use. Smoking Status: Former smoker Past Alcohol Use History: Occasional Additional Past Alcohol Use History / Comment(s): drinks 1 drink only during holidays Past Drug Use History: None Reported - Past Family History Father Family Medical History: Cancer, Myocardial Infarction ([place]) Additional Family Medical History / Comment(s): aortic anerysum, colon/ skin CA Mother Family Medical History: Diabetes Mellitus Brother(s) Family Medical History: No Reported History Sister(s) Family Medical History: No Reported History Son(s) Family Medical History: No Reported History Daughter(s) Family Medical History: No Reported History Medications and Allergies Home Medications Medication Instructions Recorded Confirmed Type Aspirin 81 mg PO DAILY 04/24/14 12/20/23 History Insulin Glargine [Lantus] 40 mg SQ BID 04/24/14 12/20/23 History Insulin Lispro [humaLOG] 40 units SQ BID 05/03/14 12/20/23 History Empagliflozin [Jardiance] 25 mg PO DAILY 12/03/21 12/20/23 History Hyoscyamine Sulfate [Levbid] 0.375 mg PO TID 12/03/21 12/20/23 History Magnesium Oxide [Magnesium] 500 mg PO DAILY 12/03/21 12/20/23 History Pantoprazole [Protonix] 40 mg PO DAILY 12/20/23 12/20/23 History Simvastatin [Zocor] 40 mg PO DAILY 12/20/23 12/20/23 History Valsartan [Diovan] 160 mg PO DAILY 12/20/23 12/20/23 History Allergies Allergy/AdvReac Type Severity Reaction Status Date / Time No Known Allergies Allergy Verified 12/20/23 12:34 Physical Exam Vitals: Vital Signs Temp Pulse Pulse Resp BP BP Pulse Ox 12/20/23 07:03 99.4 F 109 H 18 109/64 94 L 12/20/23 03:39 20 12/20/23 02:07 98.9 F 120 H 17 131/75 96 12/20/23 01:39 112 H 16 94/56 96 12/19/23 22:09 99.7 F H 106 H 18 125/68 97 Intake and Output 12/19/23 12/20/23 12/20/23 22:59 06:59 14:59 Intake Total 1280 Balance 1280 Intake: Intake, IV Titration 800 Amount Sodium Chloride 0.9% 1, 300 000 ml @ 75 mls/hr IV . [id number] [facility] Rx#:[id number] Vancomycin 2,000 mg In 500 Sodium Chloride 0.9% 500 ml 500 ml @ 167 mls/hr IVPB Q16H [facility] Rx#: [id number] Oral 480 Other: Voiding Method Toilet # Voids 2 1 Weight 136.078 kg 136.078 kg GENERAL DESCRIPTION: Elderly male lying in bed, no distress. No tachypnea or accessory muscle of respiration use. HEENT: Shows Pallor , no scleral icterus. Oral mucous membrane is dry. No pharyngeal erythema or thrush NECK: Trachea central, no thyromegaly. LUNGS: Unlabored breathing. Clear to auscultation anteriorly. No wheeze or crackle. HEART: S1, S2, regular rate and rhythm. No loud murmur ABDOMEN: Soft, no tenderness , guarding or rigidity, no organomegaly EXTREMITIES: Left lower extremity with diffuse swelling and redness and evidence of athlete's foot in between the toe SKIN: No rash, no masses palpable. NEUROLOGICAL: The patient is awake, alert, oriented x3, mood and affect normal. Results CBC & Chem 7: 12/21/23 04:07 12/21/23 04:07 Labs: Abnormal Lab Results - Last 24 Hours (Table) 12/19/23 12/19/23 12/19/23 Range/Units 23:01 23:01 23:01 WBC 19.1 H (3.8-10.6) k/uL Neutrophils # 16.9 H (1.3-7.7) k/uL D-Dimer 0.72 H (<0.60) mg/L FEU Sodium 133 L (137-145) mmol/L Creatinine 1.42 H (0.66-1.25) mg/dL Glucose 173 H (74-99) mg/dL POC Glucose (mg/dL) (70-110) mg/dL Total Bilirubin 1.6 H (0.2-1.3) mg/dL 12/20/23 12/20/23 12/20/23 Range/Units 02:09 06:55 11:35 WBC (3.8-10.6) k/uL Neutrophils # (1.3-7.7) k/uL D-Dimer (<0.60) mg/L FEU Sodium (137-145) mmol/L Creatinine (0.66-1.25) mg/dL Glucose (74-99) mg/dL POC Glucose (mg/dL) 198 H 198 H 214 H (70-110) mg/dL Total Bilirubin (0.2-1.3) mg/dL Assessment and Plan (1) Sepsis Current Visit: Yes Status: Acute Code(s): A41.9 - SEPSIS, UNSPECIFIED ORGANISM SNOMED Code(s): 48213705 (2) Left leg cellulitis Current Visit: Yes Status: Acute Code(s): L03.116 - CELLULITIS OF LEFT LOWER LIMB SNOMED Code(s): 10109536359321637 Plan: 1patient presented to hospital with sepsis in this patient who did have fever tachycardia elevated white count source is acute left lower extremity cellulitis with diffuse swelling redness likely streptococcal disease as the patient also have evidence of athlete's foot clinical risk factor low for MRSA infection 2patient also have elevated creatinine high risk of nephrotoxicity from vancomycin 3-nursing staff is advised to hudson the area of the redness then apply Andrea wrap to the left leg from just above the toe to below the knee 4-discontinue vancomycin 5-start the patient cefazolin 3 g every 8 hour We will follow on clinical condition and cultures to further adjust medication if needed Thank you for this consultation we will follow the patient along with you Dictation was produced using [employer] dictation software. please excuse any grammatical, word or spelling errors. Time with Patient: Greater than 30
[2023-12-21 06:07] LABS: Glucose,Whole Blood 159 mg/dL (70-110)
[2023-12-21] MEDS: VALSARTAN 160 MG TAB PO SCH (08:27)
[2023-12-21] MEDS: ASPIRIN 81 MG PO SCH (08:31)
[2023-12-21] MEDS: MAGNESIUM OXIDE 400 MG TAB PO SCH (08:31)
[2023-12-21] MEDS: DAPAGLIFLOZIN PROPANEDIOL 10 MG TABLET PO SCH (08:32)
[2023-12-21] MEDS ORDERED: hydroCHLOROthiazide 12.5 MG CAP PO SCH (09:00)
[2023-12-21 09:52] LABS: HCT 38.8 % (39.6-50.0); HGB 12.4 g/dL (13.0-17.0); MCH 28.8 pg (27.0-32.0); NRBC Per 100 WBC 0 X 10*3/uL (0.00-0.01); Platelet Count 226 X 10*3/uL (140-440); RBC 4.31 X 10*6/uL (4.40-5.60); RDW 14.3 % (11.5-14.5); WBC 16.27 X 10*3/uL (4.50-10.00)
[2023-12-21 09:53] LABS: Basophils # (A) 0.04 X 10*3/uL (0.00-0.10); Basophils % (A) 0.2 %; Eosinophils # (A) 0.01 X 10*3/uL (0.04-0.35); Eosinophils % (A) 0.1 %; Lymphocytes # (A) 1.14 X 10*3/uL (0.90-5.00); Monocytes # (A) 1.23 X 10*3/uL (0.20-1.00); Monocytes % (A) 7.6 %; Neutrophils # (A) 13.72 X 10*3/uL (1.80-7.70); Neutrophils % (A) 84.3 %
[2023-12-21] MEDS: SODIUM CHLORIDE 0.9% 500 ML 250 ML IV ONE (11:15)
[2023-12-21 11:40] LABS: Glucose,Whole Blood 89 mg/dL (70-110)
[2023-12-21 12:08] LABS: ALT 15 U/L (10-49); AST 19 U/L (14-35); Albumin 3.3 g/dL (3.8-4.9); Albumin/Globulin Ratio 1.43 Ratio (1.60-3.17); Alkaline Phosphatase 81 U/L (41-126); BUN/Creat Ratio 19.14 Ratio (12.00-20.00); Blood Urea Nitrogen 26.8 mg/dL (9.0-27.0); Calcium 8.4 mg/dL (8.7-10.3); Carbon Dioxide 13.3 mmol/L (21.6-31.8); Chloride 103 mmol/L (96-109); Globulin 2.3 g/dL (1.6-3.3); Glucose 191 mg/dL (70-110); Magnesium 2.5 mg/dL (1.5-2.4); Phosphorus 2.9 mg/dL (2.4-5.1); Potassium 4.7 mmol/L (3.5-5.5); Sodium 135 mmol/L (135-145); Total Bilirubin 0.3 mg/dL (0.3-1.2); Total Protein 5.6 g/dL (6.2-8.2)
--- NOTE | 2023-12-21 15:51 | P.PN ---
Subjective Progress Note Date: 12/21/23 CHIEF COMPLAINT: Left thigh/leg cellulitis HISTORY OF PRESENT ILLNESS: The patient is a 68-year-old male admitted for complex cellulitis of the left groin and lower leg. No increased pain. He is ambulating in the room to the bathroom without assistance. ROS: No reports of nausea and vomiting. No fevers or chills. No new chest pain. No productive sputum. BMI 43.0, morbid obesity due to excess calories. DM type II PHYSICAL EXAM: VITAL SIGNS: Reviewed CONSTITUTIONAL: Well developed and in no acute distress. EYES: Conjuctivae without sclera icterus. Extraocular movements grossly intact. HEAD, EARS, NOSE, THROAT: Moist buccal mucosa. Head is atraumatic, normocephalic. Hears conversational speech. No nasal drainage. RESPIRATORY: Non-labored respirations and equal bilateral excursions. CARDIOVASCULAR: Palpable 2+ radial pulses. ABDOMEN: Protuberant. No peritonitis. MUSCULOSKELETAL: Edema and erythema of the left groin and lower leg without progression. 2+ pitting edema of the LLE. Erythema below knee. SKIN: Good skin turgor. Well perfused. NEUROLOGIC: Cranial nerves II through XII grossly intact. No focal or lateralizing signs. PSYCH: Appropriate affect. Alert and oriented to person, place and time. CLINICAL LABS: Reviewed. WBC trending down from 19,000+ to 16,000+ MICRO: Reviewed and still pending. ASSESSMENT: 1. Complex left lower extremity and thigh/groin cellulitis 2. Morbid obesity due to excess calories, BMI 43.0 3. Diabetes type II PLAN: 1. Tight glycemic control for diabetes including for active infection. 2. Cultures I obtained from yesterday is still pending. 3. Wet to dry dressing daily with normal saline and 2x2 with covering of 4x4 gau ze. Objective - Vital Signs Vital signs: Vital Signs Temp 98.2 F 12/21/23 14:22 Pulse 88 12/21/23 14:22 Resp 20 12/21/23 14:22 BP 105/61 12/21/23 14:22 Pulse Ox 96 12/21/23 14:22 FiO2 Intake & Output 12/20/23 12/21/23 12/21/23 18:59 06:59 18:59 Intake Total 2124 Balance 2124 Intake: Intake, IV Titration 925 Amount Sodium Chloride 0.9% 1, 825 000 ml @ 75 mls/hr IV . [id number] [facility] Rx#:[id number] ceFAZolin 3 gm In Sodium 100 Chloride 0.9% 100 ml @ 200 mls/hr IVPB Q8HR [facility] Rx#:[id number] Blood Product 1200 Other: Voiding Method Toilet # Voids 2 2 # Bowel Movements 1 - Labs CBC & Chem 7: 12/21/23 04:07 12/21/23 04:07 Labs: Abnormal Lab Results - Last 24 Hours (Table) 12/20/23 12/20/23 12/21/23 Range/Units 16:51 19:57 04:07 WBC (4.50-10.00) X 10*3/uL RBC (4.40-5.60) X 10*6/uL Hgb (13.0-17.0) g/dL Hct (39.6-50.0) % Immature Gran # (0.00-0.04) X 10*3/uL Neutrophils # (1.80-7.70) X 10*3/uL Monocytes # (0.20-1.00) X 10*3/uL Eosinophils # (0.04-0.35) X 10*3/uL Carbon Dioxide (21.6-31.8) mmol/L Anion Gap (4.00-12.00) mmol/L Est GFR (CKD-EPI) (>=60) Glucose (70-110) mg/dL POC Glucose (mg/dL) 224 H 302 H (70-110) mg/dL Hemoglobin A1c 7.7 H (<=6.0) % Calcium (8.7-10.3) mg/dL Magnesium (1.5-2.4) mg/dL Total Protein (6.2-8.2) g/dL Albumin (3.8-4.9) g/dL Albumin/Globulin Ratio (1.60-3.17) Ratio 12/21/23 12/21/23 12/21/23 Range/Units 04:07 04:07 06:05 WBC 16.27 H (4.50-10.00) X 10*3/uL RBC 4.31 L (4.40-5.60) X 10*6/uL Hgb 12.4 L (13.0-17.0) g/dL Hct 38.8 L (39.6-50.0) % Immature Gran # 0.13 H (0.00-0.04) X 10*3/uL Neutrophils # 13.72 H (1.80-7.70) X 10*3/uL Monocytes # 1.23 H (0.20-1.00) X 10*3/uL Eosinophils # 0.01 L (0.04-0.35) X 10*3/uL Carbon Dioxide 13.3 L (21.6-31.8) mmol/L Anion Gap 18.70 H (4.00-12.00) mmol/L Est GFR (CKD-EPI) 55 L (>=60) Glucose 191 H (70-110) mg/dL POC Glucose (mg/dL) 159 H (70-110) mg/dL Hemoglobin A1c (<=6.0) % Calcium 8.4 L (8.7-10.3) mg/dL Magnesium 2.5 H (1.5-2.4) mg/dL Total Protein 5.6 L (6.2-8.2) g/dL Albumin 3.3 L (3.8-4.9) g/dL Albumin/Globulin Ratio 1.43 L (1.60-3.17) Ratio Microbiology - Last 24 Hours (Table) 12/20/23 15:35 Gram Stain - Preliminary Groin
--- NOTE | 2023-12-21 16:38 | P.PN ---
Subjective Progress Note Date: 12/21/23 Principal diagnosis: Reason for follow-up is left lower extremity cellulitis Patient is a 68-year-old male with a past medical history apparent for diabetes mellitus with a recent resection of tumor from the left upper thigh by Dr. lee and is currently being treated with wound VAC, patient presented to the hospital concerning for increasing swelling and redness to the left lower extremity, patient be diagnosed with a cellulitis prompted this consultation. On today's evaluation that is 12/21/2023,the patient did have resolution of his fever and is afebrile this morning, patient is on room air not requiring supplemental oxygen and denies any shortness of breath no chest pain or cough.Patient denies having any nausea or vomiting, no abdominal pain and no diarrhea LP denies any worsening pain to the left lower extremity. Patient white count is down to 16.27, creatinine is 1.4 cultures currently pending Objective - Vital Signs Vital signs: Vital Signs Temp 98.2 F 12/21/23 14:22 Pulse 88 12/21/23 14:22 Resp 20 12/21/23 14:22 BP 105/61 12/21/23 14:22 Pulse Ox 96 12/21/23 14:22 FiO2 Intake & Output 12/20/23 12/21/23 12/21/23 18:59 06:59 18:59 Intake Total 2125 Balance 2125 Intake: Intake, IV Titration 925 Amount Sodium Chloride 0.9% 1, 825 000 ml @ 75 mls/hr IV . [id number] [facility] Rx#:[id number] ceFAZolin 3 gm In Sodium 100 Chloride 0.9% 100 ml @ 200 mls/hr IVPB Q8HR [facility] Rx#:[id number] Blood Product 1200 Other: Voiding Method Toilet # Voids 2 2 # Bowel Movements 1 - Exam GENERAL DESCRIPTION: An elderly male lying in bed in no distress RESPIRATORY SYSTEM: Unlabored breathing , decreased breath sounds at bases HEART: S1 S2 regular rate and rhythm , ABDOMEN: Soft , no tenderness EXTREMITIES: Redness slightly decreased no drainage - Labs CBC & Chem 7: 12/21/23 04:07 12/21/23 04:07 Labs: Abnormal Lab Results - Last 24 Hours (Table) 12/20/23 12/20/23 12/21/23 Range/Units 16:51 19:57 04:07 WBC (4.50-10.00) X 10*3/uL RBC (4.40-5.60) X 10*6/uL Hgb (13.0-17.0) g/dL Hct (39.6-50.0) % Immature Gran # (0.00-0.04) X 10*3/uL Neutrophils # (1.80-7.70) X 10*3/uL Monocytes # (0.20-1.00) X 10*3/uL Eosinophils # (0.04-0.35) X 10*3/uL Carbon Dioxide (21.6-31.8) mmol/L Anion Gap (4.00-12.00) mmol/L Est GFR (CKD-EPI) (>=60) Glucose (70-110) mg/dL POC Glucose (mg/dL) 224 H 302 H (70-110) mg/dL Hemoglobin A1c 7.7 H (<=6.0) % Calcium (8.7-10.3) mg/dL Magnesium (1.5-2.4) mg/dL Total Protein (6.2-8.2) g/dL Albumin (3.8-4.9) g/dL Albumin/Globulin Ratio (1.60-3.17) Ratio 12/21/23 12/21/23 12/21/23 Range/Units 04:07 04:07 06:05 WBC 16.27 H (4.50-10.00) X 10*3/uL RBC 4.31 L (4.40-5.60) X 10*6/uL Hgb 12.4 L (13.0-17.0) g/dL Hct 38.8 L (39.6-50.0) % Immature Gran # 0.13 H (0.00-0.04) X 10*3/uL Neutrophils # 13.72 H (1.80-7.70) X 10*3/uL Monocytes # 1.23 H (0.20-1.00) X 10*3/uL Eosinophils # 0.01 L (0.04-0.35) X 10*3/uL Carbon Dioxide 13.3 L (21.6-31.8) mmol/L Anion Gap 18.70 H (4.00-12.00) mmol/L Est GFR (CKD-EPI) 55 L (>=60) Glucose 191 H (70-110) mg/dL POC Glucose (mg/dL) 159 H (70-110) mg/dL Hemoglobin A1c (<=6.0) % Calcium 8.4 L (8.7-10.3) mg/dL Magnesium 2.5 H (1.5-2.4) mg/dL Total Protein 5.6 L (6.2-8.2) g/dL Albumin 3.3 L (3.8-4.9) g/dL Albumin/Globulin Ratio 1.43 L (1.60-3.17) Ratio Microbiology - Last 24 Hours (Table) 12/20/23 15:35 Gram Stain - Preliminary Groin Assessment and Plan (1) Sepsis Current Visit: Yes Status: Acute Code(s): A41.9 - SEPSIS, UNSPECIFIED ORGANISM SNOMED Code(s): 62526040 (2) Left leg cellulitis Current Visit: Yes Status: Acute Code(s): L03.116 - CELLULITIS OF LEFT LOWER LIMB SNOMED Code(s): 35235928214212384 Plan: 1patient presented to hospital with sepsis in this patient who did have fever tachycardia elevated white count source is acute left lower extremity cellulitis with diffuse swelling redness likely streptococcal disease as the patient also have evidence of athlete's foot clinical risk factor low for MRSA infection 2patient also have elevated creatinine high risk of nephrotoxicity from vancomycin 3-nursing staff is advised again today to apply Andrea wrap to the left leg from just above the toe to below the knee 4-patient to continue with cefazolin 3 g every 8 hour clinical course closely Dictation was produced using [employer] dictation software. please excuse any grammatical, word or spelling errors. Time with Patient: Less than 30
[2023-12-21 16:57] LABS: Glucose,Whole Blood 87 mg/dL (70-110)
[2023-12-21 20:48] LABS: Glucose,Whole Blood 120 mg/dL (70-110)
[2023-12-22 06:12] LABS: Glucose,Whole Blood 61 mg/dL (70-110)
[2023-12-22 06:28] LABS: Glucose,Whole Blood 80 mg/dL (70-110)
[2023-12-22 11:39] LABS: Glucose,Whole Blood 132 mg/dL (70-110)
--- NOTE | 2023-12-22 11:39 | P.PN ---
Subjective Progress Note Date: 12/22/23 CHIEF COMPLAINT: Left thigh/leg cellulitis HISTORY OF PRESENT ILLNESS: The patient is a 68-year-old male admitted for complex cellulitis of the left groin and lower leg. No increased pain. He is able to ambulate. They have been changing the packing daily. Afebrile. WBC 16 yesterday PHYSICAL EXAM: VITAL SIGNS: Reviewed GENERAL: Well-developed in no acute distress. HEENT: No sclera icterus. Extraocular movements grossly intact. Moist buccal mucosa. Head is atraumatic, normocephalic. Hears conversational speech. No nasal drainage. NECK: Supple without lymphadenopathy. CHEST: Non-labored respirations and equal bilateral excursions. CARDIOVASCULAR: Palpable 2+ radial pulses. ABDOMEN: Soft. Nondistended. Nontender. MUSCULOSKELETAL: Erythema of the left groin with swelling. Packing in place. Left lower extremity erythema below the knee with swelling. Left lower extremity is Andrea wrapped. NEUROLOGIC: No focal or lateralizing signs. Cranial nerves II through XII grossly intact. PSYCH: Appropriate affect. Alert and oriented to person, place and time. SKIN: Well perfused. Good skin turgor. ASSESSMENT: 1. Complex left lower extremity and thigh/groin cellulitis 2. Morbid obesity due to excess calories, BMI 43.0 3. Diabetes type II 4. Patient is status post a recent fatty tumor resection from the left thigh PLAN: 1. Tight glycemic control for diabetes including for active infection. 2. Cultures are still pending. 3. Wet to dry dressing daily with normal saline and 2x2 with covering of 4x4 gauze. Physician Manager Document note has been reviewed by physician. Signing provider agrees with the documented findings, assessment, and plan of care. Objective - Vital Signs Vital signs: Vital Signs Temp 98.0 F 12/22/23 07:16 Pulse 80 12/22/23 07:16 Resp 17 12/22/23 07:16 BP 124/63 12/22/23 07:16 Pulse Ox 97 12/22/23 07:16 FiO2 21 12/21/23 20:55 Intake & Output 12/21/23 12/22/23 12/22/23 18:59 06:59 18:59 Intake Total 1300 Balance 1300 Intake: Intake, IV Titration 1300 Amount Sodium Chloride 0.9% 1, 1200 000 ml @ 100 mls/hr IV . Q10H [facility] Rx#:[id number] ceFAZolin 3 gm In Sodium 100 Chloride 0.9% 100 ml @ 200 mls/hr IVPB Q8HR [facility] Rx#:[id number] Other: Voiding Method Toilet # Voids 2 2 - Labs CBC & Chem 7: 12/21/23 04:07 12/21/23 04:07 Labs: Abnormal Lab Results - Last 24 Hours (Table) 12/21/23 12/21/23 12/22/23 Range/Units 04:07 20:46 06:09 Carbon Dioxide 13.3 L (21.6-31.8) mmol/L Anion Gap 18.70 H (4.00-12.00) mmol/L Est GFR (CKD-EPI) 55 L (>=60) Glucose 191 H (70-110) mg/dL POC Glucose (mg/dL) 120 H 61 L (70-110) mg/dL Calcium 8.4 L (8.7-10.3) mg/dL Magnesium 2.5 H (1.5-2.4) mg/dL Total Protein 5.6 L (6.2-8.2) g/dL Albumin 3.3 L (3.8-4.9) g/dL Albumin/Globulin Ratio 1.43 L (1.60-3.17) Ratio Microbiology - Last 24 Hours (Table) 12/20/23 15:35 Gram Stain - Preliminary Groin Wound Culture - Preliminary
--- NOTE | 2023-12-22 11:49 | CDI ---
Documentation Clarification Form Date: 12/22/2023 From: Danielle Craig RN, CCDS Phone: [phone] Admit Date: 12/20/2023 12:13:00 AM Patient Name: Adrián Acosta Visit Number: [id number] Discharge Date: ATTENTION: The Clinical Documentation Specialists (CDI) and [facility] Coding Staff appreciate your assistance in clarifying documentation. Please respond to the clarification below the line at the bottom and electronically sign. The CDI & [facility] Coding staff will review the response and follow-up if needed. Please note: Queries are made part of the Legal Health Record. If you have any questions, please contact the author of this message via ITS. Doctor/Provider: Leon Patrick DO: Cellulitis is documented in the H&P 12/19. Additional clarification regarding the type of cellulitis is requested. History/risk factors: 68-year-old Male with a history of DM, Fatty tumor removal left thigh with removal one month ago Clinical Indicators: 12/19 H&P, Assessment and Plan: "(1) Open wound of left thigh, (2) Diabetes, (3) Left leg cellulitis, (4) Diabetic ketoacidosis, (5) IDDM" 12/19 Surgical consult, HPI: "moderate to severe cellulitis of the upper thigh 20cm x20cm and entire lower leg" 12/19-12/21 Glucose POC range: 61 (12/21)-302 (12/19) 12/20 A1c: 7.7 12/19 Ultrasound left lower extremity, Impression: "No evidence of DVT in the left lower extremity." Treatment: Monitor glucose level Normal Saline IV 130cc/hour 12/18-12/19 then 100cc/hour start 12/19 Normal Saline IV 1000cc bolus once 12/20 Novolog SubQ AC-TID to scale Levemir 40units SubQ BID start 12/19 Ceftriaxone 2gram IV once 12/18 Vancomycin 2000mg IV once 12/19 Cefazolin 3gram IV [id number] start 12/19 Please clarify the etiology of the cellulitis, if known: [ ] Cellulitis is a diabetic skin complication [ ] Cellulitis is not a diabetic skin complication [ ] Other, please specify: [ ] Unable to determine MTDD
--- NOTE | 2023-12-22 12:06 | P.PN ---
Subjective Progress Note Date: 12/23/23 H&P Date: 12/20/23 Chief Complaint: cellulitis left lower extreme Mr. Acosta is a 68-year-old male well-known to my practice presents today with a cellulitis to the left lower extreme secondary to small abrasion he recently underwent removal of a mass to the left thigh for which she has a wound VAC for closure, Dr. 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 12/22/2023 Maintained on IV fluid hydration and cefazolin. afebrile, WBC trending down, WBC 16.27. Pain controlled, ambulating in room, appetite improving. Reports positive bowel movement yesterday. Objective - Vital Signs Vital signs: Vital Signs Temp 98.0 F 12/22/23 07:16 Pulse 80 12/22/23 07:16 Resp 17 12/22/23 07:16 BP 124/63 12/22/23 07:16 Pulse Ox 97 12/22/23 07:16 FiO2 21 12/21/23 20:55 Intake & Output 12/21/23 12/22/23 12/22/23 18:59 06:59 18:59 Intake Total 1300 Balance 1300 Intake: Intake, IV Titration 1300 Amount Sodium Chloride 0.9% 1, 1200 000 ml @ 100 mls/hr IV . Q10H [facility] Rx#:[id number] ceFAZolin 3 gm In Sodium 100 Chloride 0.9% 100 ml @ 200 mls/hr IVPB Q8HR [facility] Rx#:[id number] Other: Voiding Method Toilet # Voids 2 2 - Exam General: [Patient awake, alert and oriented times 3. Sitting up at side of bed, no acute distress. HEENT: NC/AT,PERRL. EOMI. MMM. Neck: Supple, no JVD. Cardiac: RRR, No S3. No S4. No clicks, rubs. No murmur. Lungs: Unlabored, equal air entry, clear to auscultation bilaterally. Abdomen: No mass. No organomegaly. Bowel sounds presnt and normoactive in all 4 quadrants. Extremes: cellulitis to the knee on the left side, small abrasion anterior tibial region and mid lower extremity Andrea wrapped. Skin: Warm and dry, no rash noted. Neurologic: CN II - XII grossly intact. No focal deficits Microbiology 12/19/23 23:01 Blood Blood Culture - Preliminary 12/20/23 15:35 Groin Gram Stain - Preliminary 12/20/23 15:35 Groin Wound Culture - Preliminary - Labs CBC & Chem 7: 12/23/23 03:11 12/23/23 03:11 Labs: Abnormal Lab Results - Last 24 Hours (Table) 12/21/23 12/21/23 12/22/23 Range/Units 04:07 20:46 06:09 Carbon Dioxide 13.3 L (21.6-31.8) mmol/L Anion Gap 18.70 H (4.00-12.00) mmol/L Est GFR (CKD-EPI) 55 L (>=60) Glucose 191 H (70-110) mg/dL POC Glucose (mg/dL) 120 H 61 L (70-110) mg/dL Calcium 8.4 L (8.7-10.3) mg/dL Magnesium 2.5 H (1.5-2.4) mg/dL Total Protein 5.6 L (6.2-8.2) g/dL Albumin 3.3 L (3.8-4.9) g/dL Albumin/Globulin Ratio 1.43 L (1.60-3.17) Ratio 12/22/23 Range/Units 11:35 Carbon Dioxide (21.6-31.8) mmol/L Anion Gap (4.00-12.00) mmol/L Est GFR (CKD-EPI) (>=60) Glucose (70-110) mg/dL POC Glucose (mg/dL) 132 H (70-110) mg/dL Calcium (8.7-10.3) mg/dL Magnesium (1.5-2.4) mg/dL Total Protein (6.2-8.2) g/dL Albumin (3.8-4.9) g/dL Albumin/Globulin Ratio (1.60-3.17) Ratio Microbiology - Last 24 Hours (Table) 12/20/23 15:35 Gram Stain - Preliminary Groin Wound Culture - Preliminary Assessment and Plan Assessment: Sepsis secondary to left lower extremity and thigh/groin cellulitis (1) Open wound of left thigh, requiring packing of wound daily Narrative/Plan: postop removal of tumor left thigh Current Visit: Yes Status: Acute Code(s): S71.102A - UNSPECIFIED OPEN WOUND, LEFT THIGH, INITIAL ENCOUNTER SNOMED Code(s): 09594940300872065 (2) Diabetes II Current Visit: Yes Status: Acute Code(s): E11.9 - TYPE 2 DIABETES MELLITUS WITHOUT COMPLICATIONS SNOMED Code(s): 42198852 (3) Left leg cellulitis, diabetic skin complication Current Visit: Yes Status: Acute Code(s): L03.116 - CELLULITIS OF LEFT LOWER LIMB SNOMED Code(s): 84648799359008594 (4) Diabetic ketoacidosis Current Visit: No Status: Acute Code(s): E13.10 - OTH DIABETES MELLITUS WITH KETOACIDOSIS WITHOUT COMA SNOMED Code(s): 367094517 (5) IDDM (insulin dependent diabetes mellitus) Current Visit: No Status: Chronic Code(s): E11.9 - TYPE 2 DIABETES MELLITUS WITHOUT COMPLICATIONS SNOMED Code(s): 22690155 (6) morbid obesity, BMI 43 Plan: Continue on current medication regimen ,monitoring and symptomatic treatment. Antibiotics as per infectious disease. Cultures in progress. Increase activity as tolerated. The impression and plan of care has been dictated as directed. : I performed a history and examination of this patient, discussed the same with the dictator. I agree with the dictator's note ,documented as a scribe. Any additional findings or plans will be noted.
[2023-12-22 16:31] LABS: Glucose,Whole Blood 282 mg/dL (70-110)
[2023-12-22 20:49] LABS: Glucose,Whole Blood 277 mg/dL (70-110)
[2023-12-22] MEDS: LORATADINE 10 MG TAB PO SCH (21:25)
[2023-12-23 06:54] LABS: Glucose,Whole Blood 127 mg/dL (70-110)
[2023-12-23 09:28] LABS: Basophils # (A) 0.04 X 10*3/uL (0.00-0.10); Basophils % (A) 0.7 %; Eosinophils % (A) 3.3 %; HCT 40.2 % (39.6-50.0); HGB 13.4 g/dL (13.0-17.0); Lymphocytes # (A) 1.33 X 10*3/uL (0.90-5.00); Lymphocytes % (A) 21.9 %; MCH 29.2 pg (27.0-32.0); MCHC 33.3 g/dL (32.0-37.0); MCV 87.6 FL (80.0-97.0); Monocytes # (A) 0.74 X 10*3/uL (0.20-1.00); Monocytes % (A) 12.2 %; NRBC Per 100 WBC 0 X 10*3/uL (0.00-0.01); Neutrophils # (A) 3.72 X 10*3/uL (1.80-7.70); Neutrophils % (A) 61.1 %; Platelet Count 224 X 10*3/uL (140-440); RBC 4.59 X 10*6/uL (4.40-5.60); RDW 14.2 % (11.5-14.5); WBC 6.08 X 10*3/uL (4.50-10.00)
[2023-12-23 09:29] LABS: BUN/Creat Ratio 16.88 Ratio (12.00-20.00); Blood Urea Nitrogen 13.5 mg/dL (9.0-27.0); Calcium 8.4 mg/dL (8.7-10.3); Carbon Dioxide 22.3 mmol/L (21.6-31.8); Chloride 108 mmol/L (96-109); Glucose 155 mg/dL (70-110); Potassium 3.8 mmol/L (3.5-5.5); Sodium 141 mmol/L (135-145)
--- NOTE | 2023-12-23 10:26 | P.PN ---
Subjective Progress Note Date: 12/23/23 H&P Date: 12/20/23 Chief Complaint: cellulitis left lower extreme Mr. Acosta is a 68-year-old male well-known to my practice presents today with a cellulitis to the left lower extreme secondary to small abrasion he recently underwent removal of a mass to the left thigh for which she has a wound VAC for closure, Dr. 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 12/22/2023 Maintained on IV fluid hydration and cefazolin. afebrile, WBC trending down, WBC 16.27. Pain controlled, ambulating in room, appetite improving. Reports positive bowel movement yesterday. 12/23/2023 Preliminary anaerobic culture reporting Prevotella species. Preliminary wound culture reporting Corynebacterium striatum, Strep dysgalactiae. continues on cefazolin, afebrile, WBC has normalized.Renal function stable blood sugars controlled. Pain improving. Objective - Vital Signs Vital signs: Vital Signs Temp 98.1 F 12/23/23 07:19 Pulse 78 12/23/23 07:19 Resp 18 12/23/23 07:19 BP 133/74 12/23/23 07:19 Pulse Ox 98 12/23/23 07:19 FiO2 21 12/21/23 20:55 Intake & Output 12/22/23 12/23/23 12/23/23 18:59 06:59 18:59 Intake Total 1200 Balance 1200 Intake: Intake, IV Titration 1200 Amount Sodium Chloride 0.9% 1, 1200 000 ml @ 100 mls/hr IV . Q10H [facility] Rx#:[id number] Other: # Voids 2 1 - Exam General:Awake, alert and oriented times 3. Sitting up at side of bed, no acute distress. HEENT: NC/AT,PERRL. EOMI. MMM. Neck: Supple, no JVD. Cardiac: RRR, No S3. No S4. No clicks, rubs. No murmur. Lungs: Unlabored, equal air entry, clear to auscultation bilaterally. Abdomen: No mass. No organomegaly. Bowel sounds presnt and normoactive in all 4 quadrants. Extremes: cellulitis to the knee on the left side, small abrasion anterior tibial region and mid lower extremity Andrea wrapped. Skin: Warm and dry, no rash noted. Neurologic: CN II - XII grossly intact. No focal deficits Microbiology 12/20/23 15:35 Groin Anaerobic Culture - Preliminary Prevotella species 12/20/23 15:35 Groin Gram Stain - Preliminary 12/20/23 15:35 Groin Wound Culture - Preliminary Corynebacterium striatum Strep dysgalactiae 12/19/23 23:01 Blood Blood Culture - Preliminary - Labs CBC & Chem 7: 12/23/23 03:11 12/23/23 03:11 Labs: Abnormal Lab Results - Last 24 Hours (Table) 12/22/23 12/22/23 12/22/23 Range/Units 11:35 16:28 20:47 Immature Gran # (0.00-0.04) X 10*3/uL Glucose (70-110) mg/dL POC Glucose (mg/dL) 132 H 282 H 277 H (70-110) mg/dL Calcium (8.7-10.3) mg/dL 12/23/23 12/23/23 12/23/23 Range/Units 03:11 03:11 06:52 Immature Gran # 0.05 H (0.00-0.04) X 10*3/uL Glucose 155 H (70-110) mg/dL POC Glucose (mg/dL) 127 H (70-110) mg/dL Calcium 8.4 L (8.7-10.3) mg/dL Microbiology - Last 24 Hours (Table) 12/20/23 15:35 Anaerobic Culture - Preliminary Groin Prevotella species 12/20/23 15:35 Gram Stain - Preliminary Groin Wound Culture - Preliminary Corynebacterium striatum Strep dysgalactiae 12/19/23 23:01 Blood Culture - Preliminary Blood Assessment and Plan Assessment: Sepsis secondary to left lower extremity and thigh/groin cellulitis (1) Open wound of left thigh, requiring packing of wound daily. Preliminary anaerobic culture reporting Prevotella species. Preliminary wound culture reporting Corynebacterium striatum, Strep dysgalactiae Narrative/Plan: postop removal of tumor left thigh Current Visit: Yes Status: Acute Code(s): S71.102A - UNSPECIFIED OPEN WOUND, LEFT THIGH, INITIAL ENCOUNTER SNOMED Code(s): 90090335271938753 (2) Diabetes II Current Visit: Yes Status: Acute Code(s): E11.9 - TYPE 2 DIABETES MELLITUS WITHOUT COMPLICATIONS SNOMED Code(s): 14174638 (3) Left leg cellulitis Current Visit: Yes Status: Acute Code(s): L03.116 - CELLULITIS OF LEFT LOWER LIMB SNOMED Code(s): 67436700689109670 (4) Diabetic ketoacidosis Current Visit: No Status: Acute Code(s): E13.10 - OTH DIABETES MELLITUS WITH KETOACIDOSIS WITHOUT COMA SNOMED Code(s): 317676784 (5) IDDM (insulin dependent diabetes mellitus) Current Visit: No Status: Chronic Code(s): E11.9 - TYPE 2 DIABETES MELLITUS WITHOUT COMPLICATIONS SNOMED Code(s): 42905005 (6) morbid obesity, BMI 43 Plan: Continue on current medication regimen ,monitoring and symptomatic treatment. Local wound care. Cultures finalizing, antibiotics as per infectious disease. Increase activity as tolerated. Discharge planning in progress pending final culture results, final DC recommendations/antibiotics and clearance per ID and general surgery. The impression and plan of care has been dictated as directed. : I performed a history and examination of this patient, discussed the same with the dictator. I agree with the dictator's note ,documented as a scribe. Any additional findings or plans will be noted.
[2023-12-23 11:01] LABS: Glucose,Whole Blood 136 mg/dL (70-110)
[2023-12-23] MEDS: POTASSIUM CHLORIDE ER 20 MEQ TAB.ER PO STA (11:29)
[2023-12-23] MEDS: AMPICILLIN-SULBACTAM 3 GM in SODIUM CHLORIDE 0.9% 100 ML IVPB SCH (12:35)
--- NOTE | 2023-12-23 13:23 | P.PN ---
Subjective Progress Note Date: 12/23/23 CHIEF COMPLAINT: Left thigh/leg cellulitis HISTORY OF PRESENT ILLNESS: The patient is a 68-year-old male admitted for complex cellulitis of the left groin and lower leg. No increased pain. He is able to ambulate. They have been changing the packing daily. Afebrile. WBC has normalized at 6.08 PHYSICAL EXAM: VITAL SIGNS: Reviewed GENERAL: Well-developed in no acute distress. HEENT: No sclera icterus. Extraocular movements grossly intact. Moist buccal mucosa. Head is atraumatic, normocephalic. Hears conversational speech. No nasal drainage. NECK: Supple without lymphadenopathy. CHEST: Non-labored respirations and equal bilateral excursions. CARDIOVASCULAR: Palpable 2+ radial pulses. ABDOMEN: Soft. Nondistended. Nontender. MUSCULOSKELETAL: Erythema of the left groin with swelling. Packing in place with serous drainage. Left lower extremity erythema below the knee with Andrea wrap NEUROLOGIC: No focal or lateralizing signs. Cranial nerves II through XII grossly intact. PSYCH: Appropriate affect. Alert and oriented to person, place and time. SKIN: Well perfused. Good skin turgor. ASSESSMENT: 1. Complex left lower extremity and thigh/groin cellulitis 2. Morbid obesity due to excess calories, BMI 43.0 3. Diabetes type II 4. Patient is status post a recent fatty tumor resection from the left thigh PLAN: -Tight glycemic control for diabetes including for active infection. -Continue local wound care with wet-to-dry dressing changes -Antibiotics per ID service Physician Seasoning Sprayer note has been reviewed by physician. Signing provider agrees with the documented findings, assessment, and plan of care. Objective - Vital Signs Vital signs: Vital Signs Temp 98.4 F 12/23/23 12:34 Pulse 71 12/23/23 12:34 Resp 18 12/23/23 12:43 BP 143/79 12/23/23 12:34 Pulse Ox 96 12/23/23 12:34 FiO2 21 12/21/23 20:55 Intake & Output 12/22/23 12/23/23 12/23/23 18:59 06:59 18:59 Intake Total 1200 Balance 1200 Intake: Intake, IV Titration 1200 Amount Sodium Chloride 0.9% 1, 1200 000 ml @ 100 mls/hr IV . Q10H [facility] Rx#:[id number] Other: # Voids 2 1 - Labs CBC & Chem 7: 12/23/23 03:11 12/23/23 03:11 Labs: Abnormal Lab Results - Last 24 Hours (Table) 12/22/23 12/22/23 12/23/23 Range/Units 16:28 20:47 03:11 Immature Gran # (0.00-0.04) X 10*3/uL Glucose 155 H (70-110) mg/dL POC Glucose (mg/dL) 282 H 277 H (70-110) mg/dL Calcium 8.4 L (8.7-10.3) mg/dL 12/23/23 12/23/23 12/23/23 Range/Units 03:11 06:52 10:58 Immature Gran # 0.05 H (0.00-0.04) X 10*3/uL Glucose (70-110) mg/dL POC Glucose (mg/dL) 127 H 136 H (70-110) mg/dL Calcium (8.7-10.3) mg/dL Microbiology - Last 24 Hours (Table) 12/19/23 23:01 Blood Culture - Preliminary Blood 12/20/23 15:35 Anaerobic Culture - Preliminary Groin Prevotella species 12/20/23 15:35 Gram Stain - Preliminary Groin Wound Culture - Preliminary Corynebacterium striatum Strep dysgalactiae
--- NOTE | 2023-12-23 15:40 | P.PN ---
Subjective Progress Note Date: 12/22/23 Principal diagnosis: Reason for follow-up is left lower extremity cellulitis Patient is a 68-year-old male with a past medical history apparent for diabetes mellitus with a recent resection of tumor from the left upper thigh by Dr. lee and is currently being treated with wound VAC, patient presented to the hospital concerning for increasing swelling and redness to the left lower extremity, patient be diagnosed with a cellulitis prompted this consultation. On today's evaluation that is 12/22/2023, the patient continues to be afebrile, the patient is on room air and breathing comfortably, the Pt denies having any chest pain or cough, the patient denies having any abdominal pain no vomiting or any diarrhea has been reported by the nursing staff, pain and swelling to the left lower extremity has decreased in intensity. No lab draw today cultures currently pending Objective - Vital Signs Vital signs: Vital Signs Temp 98.0 F 12/22/23 07:16 Pulse 80 12/22/23 07:16 Resp 17 12/22/23 07:16 BP 124/63 12/22/23 07:16 Pulse Ox 97 12/22/23 07:16 FiO2 21 12/21/23 20:55 Intake & Output 12/21/23 12/22/23 12/22/23 18:59 06:59 18:59 Intake Total 1300 Balance 1300 Intake: Intake, IV Titration 1300 Amount Sodium Chloride 0.9% 1, 1200 000 ml @ 100 mls/hr IV . Q10H [facility] Rx#:[id number] ceFAZolin 3 gm In Sodium 100 Chloride 0.9% 100 ml @ 200 mls/hr IVPB Q8HR [facility] Rx#:[id number] Other: Voiding Method Toilet # Voids 2 2 - Exam GENERAL DESCRIPTION: An elderly male lying in bed in no distress RESPIRATORY SYSTEM: Unlabored breathing , decreased breath sounds at bases HEART: S1 S2 regular rate and rhythm , ABDOMEN: Soft , no tenderness EXTREMITIES: Redness slightly decreased no drainage - Labs CBC & Chem 7: 12/23/23 03:11 12/23/23 03:11 Labs: Abnormal Lab Results - Last 24 Hours (Table) 12/21/23 12/22/23 12/22/23 Range/Units 20:46 06:09 11:35 POC Glucose (mg/dL) 120 H 61 L 132 H (70-110) mg/dL Microbiology - Last 24 Hours (Table) 12/20/23 15:35 Gram Stain - Preliminary Groin Wound Culture - Preliminary Assessment and Plan (1) Sepsis Current Visit: Yes Status: Acute Code(s): A41.9 - SEPSIS, UNSPECIFIED ORGANISM SNOMED Code(s): 61744629 (2) Left leg cellulitis Current Visit: Yes Status: Acute Code(s): L03.116 - CELLULITIS OF LEFT LOWER LIMB SNOMED Code(s): 95696845163532842 Plan: 1patient presented to hospital with sepsis in this patient who did have fever tachycardia elevated white count source is acute left lower extremity cellulitis with diffuse swelling redness likely streptococcal disease as the patient also have evidence of athlete's foot clinical risk factor low for MRSA infection 2patient also have elevated creatinine high risk of nephrotoxicity from vancomycin 3-nursing to continue with cefazolin 3 g every 8 hour along with Andrea wrap while waiting for the culture to finalize Dictation was produced using [employer] dictation software. please excuse any grammatical, word or spelling errors. Time with Patient: Less than 30
--- NOTE | 2023-12-23 15:41 | P.PN ---
Subjective Progress Note Date: 12/23/23 Principal diagnosis: Reason for follow-up is left lower extremity cellulitis Patient is a 68-year-old male with a past medical history apparent for diabetes mellitus with a recent resection of tumor from the left upper thigh by Dr. lee and is currently being treated with wound VAC, patient presented to the hospital concerning for increasing swelling and redness to the left lower extremity, patient be diagnosed with a cellulitis prompted this consultation. On today's evaluation that is 12/23/2023, Patient is afebrile patient is currently on room air and denies having any shortness of breath, the patient denies any chest pain or cough, the patient denies any nausea vomiting did not have any abdominal pain and no diarrhea patient swelling redness of left leg has decreased intensity. Patient white count normalized to 6.08, creatinine is 0.8 cultures been fin alized with Prevotella strep and corynebacterium blood cultures so far pending Objective - Vital Signs Vital signs: Vital Signs Temp 98.1 F 12/23/23 07:19 Pulse 78 12/23/23 07:19 Resp 18 12/23/23 07:19 BP 133/74 12/23/23 07:19 Pulse Ox 98 12/23/23 07:19 FiO2 21 12/21/23 20:55 Intake & Output 12/22/23 12/23/23 12/23/23 18:59 06:59 18:59 Intake Total 1200 Balance 1200 Intake: Intake, IV Titration 1200 Amount Sodium Chloride 0.9% 1, 1200 000 ml @ 100 mls/hr IV . Q10H [facility] Rx#:[id number] Other: # Voids 2 1 - Exam GENERAL DESCRIPTION: An elderly male lying in bed in no distress RESPIRATORY SYSTEM: Unlabored breathing , decreased breath sounds at bases HEART: S1 S2 regular rate and rhythm , ABDOMEN: Soft , no tenderness EXTREMITIES: Redness slightly decreased no drainage - Labs CBC & Chem 7: 12/23/23 03:11 12/23/23 03:11 Labs: Abnormal Lab Results - Last 24 Hours (Table) 12/22/23 12/22/23 12/23/23 Range/Units 16:28 20:47 03:11 Immature Gran # (0.00-0.04) X 10*3/uL Glucose 155 H (70-110) mg/dL POC Glucose (mg/dL) 282 H 277 H (70-110) mg/dL Calcium 8.4 L (8.7-10.3) mg/dL 12/23/23 12/23/23 12/23/23 Range/Units 03:11 06:52 10:58 Immature Gran # 0.05 H (0.00-0.04) X 10*3/uL Glucose (70-110) mg/dL POC Glucose (mg/dL) 127 H 136 H (70-110) mg/dL Calcium (8.7-10.3) mg/dL Microbiology - Last 24 Hours (Table) 12/20/23 15:35 Anaerobic Culture - Preliminary Groin Prevotella species 12/20/23 15:35 Gram Stain - Preliminary Groin Wound Culture - Preliminary Corynebacterium striatum Strep dysgalactiae 12/19/23 23:01 Blood Culture - Preliminary Blood Assessment and Plan (1) Sepsis Current Visit: Yes Status: Acute Code(s): A41.9 - SEPSIS, UNSPECIFIED ORGANISM SNOMED Code(s): 55960316 (2) Left leg cellulitis Current Visit: Yes Status: Acute Code(s): L03.116 - CELLULITIS OF LEFT LOWER LIMB SNOMED Code(s): 47580301578159658 Plan: 1patient presented to hospital with sepsis in this patient who did have fever tachycardia elevated white count source is acute left lower extremity cellulitis with diffuse swelling redness likely streptococcal disease as the patient also have evidence of athlete's foot clinical risk factor low for MRSA infection 2patient local culture have been finalized with Prevotella and strep and corynebacterium 3-we will switch patient antibiotic therapy to Unasyn continue with the Andrea wrap hopefully will transition to oral antibiotics on discharge Dictation was produced using [employer] dictation software. please excuse any grammatical, word or spelling errors. Time with Patient: Less than 30
[2023-12-23 16:10] LABS: Glucose,Whole Blood 255 mg/dL (70-110)
[2023-12-23 20:50] LABS: Glucose,Whole Blood 240 mg/dL (70-110)
[2023-12-23] MEDS: MELATONIN 5 MG TABLET PO SCH (20:56)
[2023-12-24 02:54] VITALS: PULSE 83
[2023-12-24 06:32] LABS: Glucose,Whole Blood 65 mg/dL (70-110)
--- NOTE | 2023-12-24 07:23 | CDI ---
Documentation Clarification Form Date: 12/24/2023 From: Danielle Craig RN CCDS Phone: [phone] Admit Date: 12/20/2023 12:13:00 AM Patient Name: Adrián Acosta Visit Number: [id number] Discharge Date: ATTENTION: The Clinical Documentation Specialists (CDI) and [facility] Coding Staff appreciate your assistance in clarifying documentation. Please respond to the clarification below the line at the bottom and electronically sign. The CDI & [facility] Coding staff will review the response and follow-up if needed. Please note: Queries are made part of the Legal Health Record. If you have any questions, please contact the author of this message via ITS. Doctor/Provider: Leon Patrick, DO: Cellulitis is documented in the H&P 12/19. Additional clarification regarding the type of cellulitis is requested. History/risk factors: 68-year-old Male with a history of DM, Fatty tumor removal left thigh with removal one month ago Clinical Indicators: 12/19 H&P, Assessment and Plan: "(1) Open wound of left thigh, (2) Diabetes, l (3) Left leg cellulitis, (4) Diabetic ketoacidosis, (5) IDDM" 12/19 Surgical consult, HPI: "moderate to severe cellulitis of the upper thigh 20cm x20cm and entire lower leg" 12/19-12/21 Glucose POC range: 61 (12/21)-302 (12/19) 12/20 A1c: 7.7 12/19 Ultrasound left lower extremity, Impression: "No evidence of DVT in the left lower extremity." Treatment: Monitor glucose level Normal Saline IV 130cc/hour 12/18-12/19 then 100cc/hour start 12/19 Normal Saline IV 1000cc bolus once 12/20 Novolog SubQ AC-TID to scale Levemir 40units SubQ BID start 12/19 Ceftriaxone 2gram IV once 12/18 Vancomycin 2000mg IV once 12/19 Cefazolin 3gram IV [id number] start 12/19 Please clarify the etiology of the cellulitis, if known: [x ] Cellulitis is a diabetic skin complication [ ] Cellulitis is not a diabetic skin complication [ ] Other, please specify: [ ] Unable to determine MTDD
[2023-12-24 07:38] VITALS: BP 142/80; RESP 18; TEMP 98
[2023-12-24] MEDS: POTASSIUM CHLORIDE ER 20 MEQ TAB.ER PO STA (09:22)
[2023-12-24 11:18] LABS: Glucose,Whole Blood 223 mg/dL (70-110)
--- NOTE | 2023-12-24 12:29 | P.PN ---
Subjective Progress Note Date: 12/24/23 CHIEF COMPLAINT: Left thigh/leg cellulitis HISTORY OF PRESENT ILLNESS: The patient is a 68-year-old male admitted for complex cellulitis of the left groin and lower leg. No increased pain. He is able to ambulate. They have been changing the packing daily. They are planning discharge today for patient. Afebrile. PHYSICAL EXAM: VITAL SIGNS: Reviewed GENERAL: Well-developed in no acute distress. HEENT: No sclera icterus. Extraocular movements grossly intact. Moist buccal mucosa. Head is atraumatic, normocephalic. Hears conversational speech. No nasal drainage. NECK: Supple without lymphadenopathy. CHEST: Non-labored respirations and equal bilateral excursions. CARDIOVASCULAR: Palpable 2+ radial pulses. ABDOMEN: Soft. Nondistended. Nontender. MUSCULOSKELETAL: Erythema of the left groin with swelling is decreasing. Packing in place with serous drainage. Left lower extremity erythema below the knee with Andrea wrap NEUROLOGIC: No focal or lateralizing signs. Cranial nerves II through XII grossly intact. PSYCH: Appropriate affect. Alert and oriented to person, place and time. SKIN: Well perfused. Good skin turgor. ASSESSMENT: 1. Complex left lower extremity and thigh/groin cellulitis 2. Morbid obesity due to excess calories, BMI 43.0 3. Diabetes type II 4. Patient is status post a recent fatty tumor resection from the left thigh PLAN: -Tight glycemic control for diabetes including for active infection. -Continue local wound care with wet-to-dry dressing changes -Discharge antibiotics per ID service -Patient can be discharge from surgical standpoint. Patient has follow-up appointment with Dr. Anglin. Physician Head Of Loss Prevention note has been reviewed by physician. Signing provider agrees with the documented findings, assessment, and plan of care. Objective - Vital Signs Vital signs: Vital Signs Temp 98 F 12/24/23 07:36 Pulse 83 12/24/23 07:36 Resp 18 12/24/23 07:36 BP 142/80 12/24/23 07:36 Pulse Ox 95 12/24/23 00:14 FiO2 21 12/21/23 20:55 Intake & Output 12/23/23 12/24/23 12/24/23 18:59 06:59 18:59 Intake Total 540 Balance 540 Intake: Oral 540 Other: Voiding Method Toilet # Voids 3 2 # Bowel Movements 1 - Labs CBC & Chem 7: 12/23/23 03:11 12/23/23 03:11 Labs: Abnormal Lab Results - Last 24 Hours (Table) 12/23/23 12/23/23 12/24/23 Range/Units 16:09 20:49 06:31 POC Glucose (mg/dL) 255 H 240 H 65 L (70-110) mg/dL 12/24/23 Range/Units 11:16 POC Glucose (mg/dL) 223 H (70-110) mg/dL Microbiology - Last 24 Hours (Table) 12/19/23 23:01 Blood Culture Gram Stain - Preliminary Blood Blood Culture - Preliminary 12/20/23 15:35 Anaerobic Culture - Final Groin Prevotella species Porphyromonas somee
--- NOTE | 2023-12-24 13:01 | P.DS ---
Providers Date of admission: 12/20/23 00:13 Expected date of discharge: 12/24/23 Attending physician: Al Mitchell Consults: 12/20/23 10:46 Consult Physician Routine Consulting Provider: Josselyn Carr Consult Reason/Comments: Elevated WBC, Cellulitis Do you want consulting provider notified?: Yes 12/22/23 09:16 Consult Physician Routine Consulting Provider: Fiona Gonzalez Consult Reason/Comments: recent fatty tumor removal Do you want consulting provider notified?: Already Contacted Primary care physician: Al Mitchell Hospital Course: Final diagnoses Sepsis secondary to left lower extremity and thigh/groin cellulitis (1) Open wound of left thigh, requiring packing of wound daily. Preliminary anaerobic culture reporting Prevotella species. Preliminary wound culture reporting Corynebacterium striatum, Strep dysgalactiae Narrative/Plan: postop removal of tumor left thigh Current Visit: Yes Status: Acute Code(s): S71.102A - UNSPECIFIED OPEN WOUND, LEFT THIGH, INITIAL ENCOUNTER SNOMED Code(s): 51053002329564189 (2) Diabetes II, hemoglobin A1c 7.7. Further diabetic education in clinic with PCP Current Visit: Yes Status: Acute Code(s): E11.9 - TYPE 2 DIABETES MELLITUS WITHOUT COMPLICATIONS SNOMED Code(s): 00544909 (3) Left leg cellulitis Current Visit: Yes Status: Acute Code(s): L03.116 - CELLULITIS OF LEFT LOWER LIMB SNOMED Code(s): 43589915281115889 (4) Diabetic ketoacidosis Current Visit: No Status: Acute Code(s): E13.10 - OTH DIABETES MELLITUS WITH KETOACIDOSIS WITHOUT COMA SNOMED Code(s): 482917533 (5) IDDM (insulin dependent diabetes mellitus) Current Visit: No Status: Chronic Code(s): E11.9 - TYPE 2 DIABETES MELLITUS WITHOUT COMPLICATIONS SNOMED Code(s): 74039098 (6) morbid obesity, BMI 43 Hospital course: Mr. Acosta is a 68-year-old male well-known to my practice presents today with a cellulitis to the left lower extreme secondary to small abrasion he recently underwent removal of a mass to the left thigh for which she has a wound VAC for closure, Dr. Cox about was a general surgeon involved with this procedure, patient is a type II diabetic fairly well-controlled, complains of no nausea no vomiting no headaches complains of mild discomfort to the left lower extreme with burning sensation does have neuropathy to bilateral lower extremes 12/22/2023 Maintained on IV fluid hydration and cefazolin. afebrile, WBC trending down, WBC 16.27. Pain controlled, ambulating in room, appetite improving. Reports positive bowel movement yesterday. 12/23/2023 Preliminary anaerobic culture reporting Prevotella species. Preliminary wound culture reporting Corynebacterium striatum, Strep dysgalactiae. continues on cefazolin, afebrile, WBC has normalized.Renal function stable blood sugars controlled. Pain improving. Antibiotics adjusted to Unasyn as per infectious disease. Significant clinical improvement. Cleared by general surgery and infectious disease for discharge. Patient will be discharged home today in a stable condition with guarded prognosis. Local wound care as per general surgery. DC antibiotics as per ID. Microbiology 12/19/23 23:01 Blood Blood Culture Gram Stain - Preliminary 12/19/23 23:01 Blood Blood Culture - Preliminary 12/20/23 15:35 Groin Anaerobic Culture - Final Prevotella species Porphyromonas somerae 12/20/23 15:35 Groin Gram Stain - Preliminary 12/20/23 15:35 Groin Wound Culture - Preliminary Corynebacterium striatum Strep dysgalactiae The impression and plan of care has been dictated as directed. : I performed a history and examination of this patient, discussed the same with the dictator. I agree with the dictator's note ,documented as a scribe. Any additional findings or plans will be noted. Patient Condition at Discharge: Stable Plan - Discharge Summary Discharge Rx Participant: Yes New Discharge Prescriptions: New Loratadine [Claritin] 10 mg PO HS tab Amoxic-Pot Clav 875-125Mg [Augmentin 875-125] 1 tab PO BID 14 Days #28 tab Continue Insulin Glargine [Lantus Vial] 40 mg SQ BID Aspirin 81 mg PO DAILY Insulin Lispro [humaLOG] 40 units SQ BID Hyoscyamine Sulfate [Levbid] 0.375 mg PO TID Empagliflozin [Jardiance] 25 mg PO DAILY Magnesium Oxide [Magnesium] 500 mg PO DAILY Valsartan [Diovan] 160 mg PO DAILY Simvastatin [Zocor] 40 mg PO DAILY Pantoprazole [Protonix] 40 mg PO DAILY Discharge Medication List Aspirin 81 mg PO DAILY 04/24/14 [History] Insulin Glargine [Lantus Vial] 40 mg SQ BID 04/24/14 [History] Insulin Lispro [humaLOG] 40 units SQ BID 05/03/14 [History] Empagliflozin [Jardiance] 25 mg PO DAILY 12/03/21 [History] Hyoscyamine Sulfate [Levbid] 0.375 mg PO TID 12/03/21 [History] Magnesium Oxide [Magnesium] 500 mg PO DAILY 12/03/21 [History] Pantoprazole [Protonix] 40 mg PO DAILY 12/20/23 [History] Simvastatin [Zocor] 40 mg PO DAILY 12/20/23 [History] Valsartan [Diovan] 160 mg PO DAILY 12/20/23 [History] Amoxic-Pot Clav 875-125Mg [Augmentin 875-125] 1 tab PO BID 14 Days #28 tab 12/24/23 [Rx] Loratadine [Claritin] 10 mg PO HS tab 12/24/23 [Rx] Follow up Appointment(s)/Referral(s): Al Mitchell MD [Primary Care Provider] - 12/30/23 3:45 pm Josselyn Carr MD [STAFF PHYSICIAN] - 1 Week Activity/Diet/Wound Care/Special Instructions: HGBA1C 7.7, further DM education OP in clinic, with further rec.
--- NOTE | 2023-12-25 15:09 | P.PN ---
Subjective Progress Note Date: 12/24/23 Principal diagnosis: Reason for follow-up is left lower extremity cellulitis Patient is a 68-year-old male with a past medical history apparent for diabetes mellitus with a recent resection of tumor from the left upper thigh by Dr. lee and is currently being treated with wound VAC, patient presented to the hospital concerning for increasing swelling and redness to the left lower extremity, patient be diagnosed with a cellulitis prompted this consultation. On today's evaluation that is 12/24/2023, patient has been afebrile, patient is breathing comfortably and is currently on room air, patient denies having any significant cough no chest pain, patient denies nausea vomiting or diarrhea and no abdominal pain patient pain to the left lower extremity has decreased in intensity. No new lab has been obtained today local culture with Prevotella Streptococcus blood culture with gram-positive bacilli Objective - Vital Signs Vital signs: Vital Signs Temp 98 F 12/24/23 07:36 Pulse 83 12/24/23 07:36 Resp 18 12/24/23 07:36 BP 142/80 12/24/23 07:36 Pulse Ox 95 12/24/23 00:14 FiO2 21 12/21/23 20:55 Intake & Output 12/23/23 12/24/23 12/24/23 18:59 06:59 18:59 Intake Total 540 Balance 540 Intake: Oral 540 Other: Voiding Method Toilet # Voids 3 2 # Bowel Movements 1 - Exam GENERAL DESCRIPTION: An elderly male lying in bed in no distress RESPIRATORY SYSTEM: Unlabored breathing , decreased breath sounds at bases HEART: S1 S2 regular rate and rhythm , ABDOMEN: Soft , no tenderness EXTREMITIES: Redness slightly decreased no drainage - Labs CBC & Chem 7: 12/23/23 03:11 12/23/23 03:11 Labs: Abnormal Lab Results - Last 24 Hours (Table) 12/23/23 12/23/23 12/23/23 Range/Units 10:58 16:09 20:49 POC Glucose (mg/dL) 136 H 255 H 240 H (70-110) mg/dL 12/24/23 Range/Units 06:31 POC Glucose (mg/dL) 65 L (70-110) mg/dL Microbiology - Last 24 Hours (Table) 12/19/23 23:01 Blood Culture Gram Stain - Preliminary Blood Blood Culture - Preliminary 12/20/23 15:35 Anaerobic Culture - Final Groin Prevotella species Porphyromonas somerae Assessment and Plan (1) Sepsis Status: Acute Code(s): A41.9 - SEPSIS, UNSPECIFIED ORGANISM SNOMED Code(s): 20024283 (2) Left leg cellulitis Status: Acute Code(s): L03.116 - CELLULITIS OF LEFT LOWER LIMB SNOMED Co de(s): 48941367619806358 Plan: 1patient presented to hospital with sepsis in this patient who did have fever tachycardia elevated white count source is acute left lower extremity cellulitis with diffuse swelling redness likely streptococcal disease as the patient also have evidence of athlete's foot clinical risk factor low for MRSA infection 2patient local culture have been finalized with Prevotella and strep and corynebacterium 3-positive blood culture gram-positive bacilli more likely contamination 4we will consider finishing therapy with oral Augmentin prescription sent to the pharmacy and close outpatient follow-up Dictation was produced using [employer] dictation software. please excuse any grammatical, word or spelling errors. Time with Patient: Less than 30
== END 2023-12-24 14:23 | disposition home health service (06) | DRG 862 ==
LOC: EC 22:05 → 4SSUR 12-20 00:13
PROVIDERS: ADMIT Family Medicine; ATTEND Family Medicine
DX: T81.41XA Infection following a procedure, superficial incisional surgical site, initial encounter (principal); A40.8 Other streptococcal sepsis; E11.10 Type 2 diabetes mellitus with ketoacidosis without coma; Z68.41 Body mass index [BMI] 40.0-44.9, adult; L03.116 Cellulitis of left lower limb; L03.314 Cellulitis of groin; T81.44XA Sepsis following a procedure, initial encounter; E11.628 Type 2 diabetes mellitus with other skin complications; E66.01 Morbid (severe) obesity due to excess calories; E11.42 Type 2 diabetes mellitus with diabetic polyneuropathy; Z79.4 Long term (current) use of insulin; B96.89 Other specified bacterial agents as the cause of diseases classified elsewhere; H91.90 Unspecified hearing loss, unspecified ear; Z77.090 Contact with and (suspected) exposure to asbestos; Z87.891 Personal history of nicotine dependence; Z79.82 Long term (current) use of aspirin; Z79.84 Long term (current) use of oral hypoglycemic drugs; Z79.899 Other long term (current) drug therapy
CPT/HCPCS: 36415; 80048; 80053; 83036; 83605; 83735; 83880; 84100; 84484; 85025; 85379; 85610; 85730; 87040; 87070; 87075; 87077; 87186; 87205; 93005; 94660; 96361; 96365; 96375; 99285

== ENCOUNTER → 2024-09-15 | Outpatient (CLI) | payer MEDICARE, BC ==
[2024-09-15 15:56] VITALS: BP 159/76; PULSE 76; RESP 16; TEMP 98.6
--- NOTE | 2024-09-15 17:41 | P.PROGSL ---
Subjective DATE: 09/15/2024 FOLLOW UP VISIT. Patient with obstructive sleep apnea hypopnea syndrome return to sleep center for follow-up visit. Information from previous visit have been reviewed. Patient is using PAP equipment every night for the whole night, getting PAP supplies in time. The patient does not have significant problems with the mask, PAP unit and humidification. Stryker sleepiness scale is 2, which is perfect. I checked information from PAP unit. PAP unit pressure 6-10, average 9.1 cm H2O. Usage is 100% for more then 4 hours, average 7.5 hours per night. Leak is 3.2 l/m, which is in great range. Apnea Hypopnea Index is 1.4, which is normal. MEDICATIONS have been reviewed, please see below. During physical exam: GENERAL: A pleasant patient without any distress. VITAL SIGNS: Please see below, weight is 331 lbs. HEENT: PERRLA, EOMI.low position of soft palate, Mallapati 4 . NECK: Supple. No JVD. LUNGS: Clear to percussion and to auscultation. Good air exchange. No wheezing or rhonchi. HEART: S1, S2 regular. ABDOMEN: Soft and nontender.[] EXTREMITIES: No clubbing or cyanosis. DIRECTOR SUPPLY: Awake, alert, and oriented x3. No focal deficit. Impressions: 1. Obstructive sleep apnea-hypopnea syndrome. Patient demonstrated great compliance with treatment, benefiting from treatment. 2. Obesity BMI is 49. 3. Diabetes mellitus. 4. Hypertension. 5. History of asbestosis. 6. Acid reflux. 7. Status post hemorrhoidectomy. 8. Status post arthroscopic knee surgery. 9. Status post bilateral cataract surgery. Plan: 1. Continue using PAP equipment every night for the whole night. 2. Sleep hygiene with regular time in bed for at least 7.5-8 hours 3. PAP unit should stay lower then position of the head. 4. Advised patient to remove all remaining water from humidifier canister daily and make it dry after each usage. Refill canister with fresh distilled water before each usage. 5. Watching weight. 6. Precautions related to driving. No driving if feel any sleepiness. 7. I will maintain prescription for PAP supplies including mask, tube, filters. 8. Follow up visit in 8 months or earlier if patient has any problems. Thank you very much for allowing me to participate in the management of your patient. Huber Rendon MD, PhD, FAASM. Diplomat of [place] [employer], Sleep Medicine Board by [employer] [facility] [place] Objective - Vital Signs Vital Signs: Vital Signs Temp 98.6 F 09/15/24 15:55 Pulse 76 09/15/24 15:55 Resp 16 09/15/24 15:55 BP 159/76 09/15/24 15:55 Pulse Ox 97 09/15/24 15:55 FiO2 Intake & Output 09/14/24 09/15/24 09/15/24 18:59 06:59 18:59 Weight 150.139 kg Home Medications: Home Medications Medication Instructions Recorded Confirmed Type Aspirin 81 mg PO DAILY 04/24/14 09/15/24 History Insulin Glargine (Lantus) [Lantus 40 mg SQ BID 04/24/14 09/15/24 History Vial] Insulin Lispro [humaLOG] 40 units SQ BID 05/03/14 09/15/24 History Empagliflozin [Jardiance] 25 mg PO DAILY 12/03/21 09/15/24 History Hyoscyamine Sulfate [Levbid] 0.375 mg PO TID 12/03/21 09/15/24 History Magnesium Oxide [Magnesium] 500 mg PO DAILY 12/03/21 09/15/24 History Pantoprazole [Protonix] 40 mg PO DAILY 12/20/23 09/15/24 History Simvastatin [Zocor] 40 mg PO DAILY 12/20/23 09/15/24 History Valsartan [Diovan] 160 mg PO DAILY 12/20/23 09/15/24 History Amoxic-Pot Clav 875-125Mg 1 tab PO BID 14 Days #28 tab 12/24/23 Rx [Augmentin 875-125] Loratadine [Claritin] 10 mg PO HS tab 12/24/23 Rx
== END ==
LOC: 3 N SLEEP 15:39
PROVIDERS: ATTEND Internal Medicine
DX: G47.33 Obstructive sleep apnea (adult) (pediatric) (principal); E66.9 Obesity, unspecified; Z68.42 Body mass index [BMI] 45.0-49.9, adult; E11.9 Type 2 diabetes mellitus without complications; I10 Essential (primary) hypertension; K21.9 Gastro-esophageal reflux disease without esophagitis; Z98.42 Cataract extraction status, left eye; Z98.41 Cataract extraction status, right eye; Z98.890 Other specified postprocedural states; Z87.09 Personal history of other diseases of the respiratory system; Z99.89 Dependence on other enabling machines and devices; Z87.891 Personal history of nicotine dependence
CPT/HCPCS: 99212